=== PATIENT | male | born 1940 | race Caucasian/White ===

== ENCOUNTER → 2017-06-25 | Outpatient (CLI) | payer OTHER, BC ==
[~2017-06-25] MED LIST: AMLODIPINE BESYL5 MG PO; ANORO ELLIPTA1 EACH IH; CARDIZEM CD240 MG PO; CARTIA XT240 M1 PO; DUONEB 2.5-0.5 M3 ML INH; ENDOCET 5-3251 EACH PO; HYDROCODON-ACE1 EAC7 PO; LIPITOR 20 MG T20 M1 PO; LIPITOR20 MG PO; LISINOPRIL20 MG PO; LOPRESSOR25 PO; METOPROLOL SUCC25 M1 PO; MOM PO; OMEPRAZOLE 20 M20 M1 PO; ZETIA10 MG PO; ZOCOR 20 MG TAB20 M1 PO; ZYRTEC 10 MG TA10 M1 PO; ZYRTEC10 M4 PO
== END ==
LOC: RAD 07:33
DX: J44.9 Chronic obstructive pulmonary disease, unspecified (principal); J90 Pleural effusion, not elsewhere classified; I10 Essential (primary) hypertension; E78.5 Hyperlipidemia, unspecified; I48.91 Unspecified atrial fibrillation

== ENCOUNTER → 2018-06-17 | Outpatient (CLI) | payer OTHER, BC | LOC: RAD 08:18 | DX: J44.9 Chronic obstructive pulmonary disease, unspecified (principal) ==

== ENCOUNTER 2018-09-17 16:26 | Emergency (ER) | payer OTHER, BC ==
[~2018-09-17] VITALS: Ht 182.9 cm; Wt 89.8 kg
[2018-09-17 17:47] LABS: ABSOLUTE NEUTROPHILS 4.2 thou/uL (1.4-8.2); BASOPHILS 0.7 % (0.0-2.0); EOSINOPHILS 1.9 % (0.0-3.0); HEMATOCRIT 49.4 % (42.0-52.0); HEMOGLOBIN 17.4 gm/dL (14.0-18.0); LYMPHOCYTES 33.8 % (24.0-44.0); MCH 32.7 pg (26.0-34.0); MCHC 35.2 g/dL (28.0-37.0); MCV 92.8 fL (80.0-100.0); MONOCYTES 10.5 % (1.0-8.0); PLATELET COUNT 208 thou/uL (150-400); POLYS 53.1 % (36.0-66.0); RBC 5.32 mil/uL (4.50-6.00); RDW 13.6 % (10.5-14.5)
[2018-09-17 18:03] LABS: ANION GAP 5 mmol/L (7-16); BUN 10 mg/dL (7-18); CALCIUM 8.8 mg/dL (8.5-10.1); CHLORIDE 104 mmol/L (98-107); CO2 31 mmol/L (21-32); CREATININE 1.2 mg/dL (0.7-1.3); GLUCOSE 107 mg/dL (74-106); POTASSIUM 3.8 mmol/L (3.5-5.1); SODIUM 140 mmol/L (136-145)
[2018-09-17 18:06] LABS: PROTIME 10.6 Seconds (9.3-11.4)
[2018-09-17 18:12] LABS: ALBUMIN 3.3 g/dL (3.4-5.0); MAGNESIUM 1.9 mg/dL (1.8-2.4); SGOT 27 U/L (15-37); SGPT 31 U/L (30-65); TOTAL BILIRUBIN 0.4 mg/dL (<0.1-1.0); TOTAL PROTEIN 7.5 g/dL (6.4-8.2); TROPONIN-I <0.06 ng/mL (<0.06)
[2018-09-17] MEDS ORDERED: PREDNISONE 20 M20 MG PO (18:43)
[2018-09-17] MEDS ORDERED: AMOXICILLIN875 MG PO (18:43)
[2018-09-17] MEDS ORDERED: VENTOLIN HFA 1818 GM INH (18:43)
[2018-09-17 19:04] VITALS: BP 143/89
--- NOTE | 2018-09-18 10:58 | EKG ---
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1940 Requested By: Trung Maravilla Order Number: [id number] MD: Gustavo Rosas Measurements Intervals [place] Rate: 63 P: 89 TX: 174 QRS: 82 QRSD: 108 T: 32 QT: 470 QTc: 482 Interpretive Statements Sinus rhythm Consider left atrial enlargement Borderline prolonged QT interval Compared to ECG 11/17/2015 08:56:56 No significant changes Electronically Signed On 09-18-2018 10:57:59 CDT by Gustavo Rosas [email or web address] ��������������������������������������������� <ELECTRONICALLY SIGNED> ���������������������������������������� By: Gustavo Rsoas MD ��������������������������������������������� 09/18/18 1057 1649 1649 Gustavo Rosas MD /ANASTACIA
== END 2018-09-17 19:05 | disposition home or self-care (01) ==
LOC: ER 16:26
PROVIDERS: Emergency Medicine
DX: J44.1 Chronic obstructive pulmonary disease with (acute) exacerbation (principal); J06.9 Acute upper respiratory infection, unspecified; F17.210 Nicotine dependence, cigarettes, uncomplicated; I10 Essential (primary) hypertension; E78.5 Hyperlipidemia, unspecified; I48.91 Unspecified atrial fibrillation; Z87.442 Personal history of urinary calculi; Z90.2 Acquired absence of lung [part of]; Z88.8 Allergy status to other drugs, medicaments and biological substances

== ENCOUNTER 2018-09-20 14:23 | Inpatient (IN) | payer OTHER, BC ==
[~2018-09-20] VITALS: Ht 182.9 cm; Wt 80.3 kg
[~2018-09-20 14:23] MED LIST changes: +AMOXICILLIN875 MG PO; +PREDNISONE 20 M20 MG PO; +VENTOLIN HFA 1818 GM INH
[2018-09-20 17:07] LABS: BE(vivo) -1.6 mmol/L (-2 to +3); HCO3 20.9 mmol/L (22.0-26.0); PCO2 30.6 mmHg (35.0-45.0); pH 7.452 (7.360-7.450); sO2 94.4 % (92.0-98.0)
[2018-09-20 17:35] LABS: BASOPHILS 0.3 % (0.0-2.0); HEMATOCRIT 49.7 % (42.0-52.0); HEMOGLOBIN 17.2 gm/dL (14.0-18.0); MCH 31.9 pg (26.0-34.0); MCHC 34.6 g/dL (28.0-37.0); MCV 92.3 fL (80.0-100.0); MONOCYTES 2.3 % (1.0-8.0); PLATELET COUNT 264 thou/uL (150-400); POLYS 84.4 % (36.0-66.0); RBC 5.38 mil/uL (4.50-6.00); RDW 13.9 % (10.5-14.5); WBC 10.7 thou/uL (4.0-11.0)
[2018-09-20 17:42] VITALS: BP 152/85
[2018-09-20 17:49] LABS: ANION GAP 12 mmol/L (7-16); BUN 16 mg/dL (7-18); CALCIUM 9.1 mg/dL (8.5-10.1); CHLORIDE 103 mmol/L (98-107); CO2 25 mmol/L (21-32); CREATININE 1.3 mg/dL (0.7-1.3); GLUCOSE 211 mg/dL (74-106); MAGNESIUM 1.7 mg/dL (1.8-2.4); POTASSIUM 3.1 mmol/L (3.5-5.1); SGOT 23 U/L (15-37); SGPT 40 U/L (30-65); SODIUM 140 mmol/L (136-145); TOTAL BILIRUBIN 0.6 mg/dL (<0.1-1.0); TOTAL PROTEIN 7.7 g/dL (6.4-8.2)
[2018-09-20 17:50] LABS: ALBUMIN 3.7 g/dL (3.4-5.0); TROPONIN-I <0.06 ng/mL (<0.06)
[2018-09-20 19:10] VITALS: BP 147/94
--- NOTE | 2018-09-21 00:05 | EKG ---
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 : 1940 Requested By: Juan Manuel Gates Order Number: [id number] MD: Massimo Hines Measurements Intervals [place] Rate: 59 P: 88 ND: 172 QRS: 79 QRSD: 92 T: 76 QT: 461 QTc: 457 Interpretive Statements Sinus rhythm left atrial enlargement Left ventricular hypertrophy baseline wander non specific st/t wave changes Compared to ECG 09/17/2018 16:49:17 no significant changes Electronically Signed On 09-21-2018 0:05:05 CDT by Massimo Hines [email or web address] ��������������������������������������������� <ELECTRONICALLY SIGNED> ���������������������������������������� By: Massimo Hines MD ��������������������������������������������� 09/21/18 0005 170 99 Massimo Hines MD /EPI
--- NOTE | 2018-09-21 02:21 | NUR ---
PATIENT AOX4 MAKES NEEDS KNOWN. NO SHORTNESS OF AIR OR DISTRESS NOTED THIS SHIFT.PATIENT DENIED PAIN OR DISCOMFORT. SCD ON. PATIENT IN BED ASLEEP AT THIS TIME BREATHING REGULAR AND UNLABOURED.
[2018-09-21 02:42] VITALS: BP 152/85
[2018-09-21 07:40] LABS: URINE BILIRUBIN NEGATIVE (Negative); URINE BLOOD TRACE (Negative); URINE CLARITY CLEAR; URINE COLOR YELLOW; URINE GLUCOSE-RANDOM* NEGATIVE (Negative); URINE KETONES NEGATIVE (Negative); URINE LEUKOCYTES-REFLEX TRACE (Negative); URINE NITRITE-REFLEX NEGATIVE (Negative); URINE PROTEIN (DIPSTICK) NEGATIVE (Negative); URINE UROBILINOGEN 0.2 E.U./dl (0.2-1.0)
[2018-09-21 08:17] VITALS: BP 141/81
--- NOTE | 2018-09-21 14:48 | NUR ---
PT ADMITTED RELATED TO SHORTNESS OF AIR. CM REVIEWED CHART AND SPOKE WITH CARE TEAM. CM MET WITH PT AT BEDSIDE THIS DAY. PT IS A&O X4. CM ROLE INTRODUCED. PT INDICATED HE LIVES IN A HOUSE WITH HIS WITH 2 STEPS TO ENTER AND 15 STEPS INSIDE. 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 PT INDICATED HE HAD DME OR HH HX. PT INDICATED HE WAS INTERESTED IN O2 FOR HOME USE UPON DC. EXERCIS OX WAS COMPLETED AND QUALIFIED. CM TO FOLLOW INDICATED WITH DC PLANNING.
[2018-09-21 15:19] VITALS: BP 135/86
--- NOTE | 2018-09-21 18:21 | NUR ---
PT STABLE THROUGHOUT SHIFT. PT HOPING TO DISCHARGE TOMORROW. WORKED WITH PT AND OT WHICH HE TOLERATED WELL. PT RESTING, FAMILY AT BEDSIDE.
[2018-09-21 19:12] VITALS: BP 129/75
[2018-09-21 20:03] VITALS: BP 104/53
[2018-09-22 03:29] VITALS: BP 126/80
--- NOTE | 2018-09-22 05:30 | NUR ---
Assumed care at 1845. Pt resting in bed. Denies chest pain. No episode of hypoxia. Still on 3.5L NC. Running NSR on Tele. Scheduled discharge today. No identified needs at the moment. Will continue to monitor.
[2018-09-22 06:40] LABS: HEMATOCRIT 48.5 % (42.0-52.0); HEMOGLOBIN 16.8 gm/dL (14.0-18.0); MCH 32.2 pg (26.0-34.0); MCHC 34.7 g/dL (28.0-37.0); RBC 5.22 mil/uL (4.50-6.00); RDW 13.8 % (10.5-14.5); WBC 8.9 thou/uL (4.0-11.0)
[2018-09-22 08:18] VITALS: BP 139/88
[2018-09-22] MEDS ORDERED: PREDNISONE 10 M10 MG PO (09:36)
[2018-09-22] MEDS ORDERED: OXYGEN MISCELL (09:36)
[2018-09-22] MEDS ORDERED: NEBULIZER MISCELL (09:36)
[2018-09-22] MEDS ORDERED: OSELB75 PO (09:36)
[2018-09-22] MEDS ORDERED: AZITHROMYCIN 2250 MG PO (09:36)
[2018-09-22 10:05] VITALS: BP 107/60
[2018-09-22 10:23] VITALS: BP 107/60
--- NOTE | 2018-09-22 12:07 | NUR ---
CARE TEAM INDICATED THAT PT IS MEDICALLY STABLE TO DISCHARGE HOME THIS DAY. PT QUALIFIED FOR HOME O2 AT 2L AT REST AND 6L WTIH ACTIVITY. CM ORDERED O2 THROUGH [employer] AND THEY DELIVERED TWO PORTABLE TANKS FOR PT TO DISHDARGE HOME WITH. AWAITING TO SEE IS RT WANTS PT TO HAVE NEBULIZER FOR HOME USE IF SO CM TO ORDER THROUGH [facility]. CM TO FOLLOW INDICATED WITH DC PLANNING.
[2018-09-22 14:19] VITALS: BP 124/69
--- NOTE | 2018-09-22 14:55 | NUR ---
PT GIVEN RX'S, DC INSTRUCTIONS. PT STABLE THROUGHOUT SHIFT. PT DISCHARGED HOMW. PT LEFT UNIT VIA WHEELCHAIR TO PRIVATE VEHICLE WITH O2.
[2018-09-24 19:07] LABS: ADENOVIRUS Negative (Negative); INFLUENZA A Negative (Negative); INFLUENZA B Negative (Negative); METAPNEUMOVIRUS Negative (Negative); PARAINFLUENZA 1 Negative (Negative); PARAINFLUENZA 2 Negative (Negative); PARAINFLUENZA 3 Negative (Negative); RHINOVIRUS Negative (Negative); RSV A Negative (Negative); RSV B Negative (Negative)
== END 2018-09-22 15:00 | disposition home or self-care (01) | DRG 189 ==
LOC: 4W 14:23 → ENTRNSPT 09-22 14:46 → EDTRNSPTSTS 09-22 14:49 → 4W 09-22 15:00
PROVIDERS: Hospitalist; Pediatrics; ADMIT Internal Medicine
DX: J96.01 Acute respiratory failure with hypoxia (principal); J44.1 Chronic obstructive pulmonary disease with (acute) exacerbation; I10 Essential (primary) hypertension; I48.0 Paroxysmal atrial fibrillation; K21.9 Gastro-esophageal reflux disease without esophagitis; E78.5 Hyperlipidemia, unspecified; F17.210 Nicotine dependence, cigarettes, uncomplicated; Z87.442 Personal history of urinary calculi; Z90.2 Acquired absence of lung [part of]; Z79.899 Other long term (current) drug therapy; Z88.8 Allergy status to other drugs, medicaments and biological substances
CPT/HCPCS: 10045; 10047

== ENCOUNTER → 2020-04-17 | Outpatient (CLI) | payer OTHER, BC ==
[~2020-04-17] MED LIST changes: +AZITHROMYCIN 2250 MG PO; +NEBULIZER MISCELL; +OSELB75 PO; +OXYGEN MISCELL; +PREDNISONE 10 M10 MG PO
== END ==
LOC: RAD 07:30
PROVIDERS: ATTEND Pediatrics
DX: J44.9 Chronic obstructive pulmonary disease, unspecified (principal); R91.1 Solitary pulmonary nodule

== ENCOUNTER → 2020-11-29 | Outpatient (CLI) | payer OTHER, BC | LOC: RAD 09:58 | PROVIDERS: ATTEND Pediatrics | DX: R91.8 Other nonspecific abnormal finding of lung field (principal); R06.02 Shortness of breath; R06.00 Dyspnea, unspecified ==

== ENCOUNTER → 2020-12-03 | Outpatient (CLI) | payer OTHER, BC ==
[~2020-12-03] MED LIST changes: +MACROBID 100 M100 M1 PO
== END ==
LOC: CAT 09:28
PROVIDERS: ATTEND Pediatrics
DX: R91.8 Other nonspecific abnormal finding of lung field (principal)

== ENCOUNTER 2020-12-11 11:20 | Emergency (ER) | payer OTHER, BC ==
[~2020-12-11] VITALS: Ht 182.9 cm; Wt 79.4 kg
[~2020-12-11 11:20] MED LIST changes: -MACROBID 100 M100 M1 PO
[2020-12-11 12:11] LABS: ABSOLUTE NEUTROPHILS 7.1 thou/uL (1.4-8.2); BASOPHILS 0.7 % (0.0-2.0); EOSINOPHILS 0.5 % (0.0-3.0); HEMATOCRIT 47.1 % (42.0-52.0); HEMOGLOBIN 15.9 gm/dL (14.0-18.0); LYMPHOCYTES 20.2 % (24.0-44.0); MCH 31.1 pg (26.0-34.0); MCHC 33.7 g/dL (28.0-37.0); MCV 92.4 fL (80.0-100.0); MONOCYTES 8.9 % (1.0-8.0); PLATELET COUNT 322 thou/uL (150-400); POLYS 69.7 % (36.0-66.0); WBC 10.2 thou/uL (4.0-11.0)
[2020-12-11 12:19] LABS: CALCIUM 9.3 mg/dL (8.5-10.1); CREATININE 1.2 mg/dL (0.7-1.3); POTASSIUM 3.1 mmol/L (3.5-5.1)
[2020-12-11 12:25] LABS: ALBUMIN 3.1 g/dL (3.4-5.0); DIRECT BILIRUBIN 0.2 mg/dL (<0.1-0.2); TOTAL BILIRUBIN 0.8 mg/dL (0.2-1.0); TOTAL PROTEIN 7.6 g/dL (6.4-8.2)
[2020-12-11 12:52] LABS: URINE BILIRUBIN NEGATIVE (Negative); URINE BLOOD TRACE (Negative); URINE CLARITY CLEAR; URINE COLOR YELLOW; URINE GLUCOSE-RANDOM* NEGATIVE (Negative); URINE KETONES NEGATIVE (Negative); URINE LEUKOCYTES-REFLEX 1+ (Negative); URINE NITRITE-REFLEX NEGATIVE (Negative); URINE PROTEIN (DIPSTICK) NEGATIVE (Negative); URINE UROBILINOGEN 0.2 E.U./dl (0.2-1.0)
[2020-12-11 13:08] LABS: CASTS None Seen /LPF (None Seen); SQUAMOUS 0-3 Few /LPF (0-3)
[2020-12-11 13:09] LABS: BACTERIA-REFLEX None Seen /HPF (None Seen); CRYSTALS None Seen /LPF (None Seen); URINE RBC 1-2 Rare /HPF (NONE SEEN); URINE WBC-REFLEX 0-5 Rare /HPF (0-5)
[2020-12-11] MEDS ORDERED: MACROBID 100 M100 M1 PO (13:54)
[2020-12-11 14:34] VITALS: BP 122/80
== END 2020-12-11 14:35 | disposition home or self-care (01) ==
LOC: ER 11:20
PROVIDERS: Nurse Practitioner
DX: R04.2 Hemoptysis (principal); N39.0 Urinary tract infection, site not specified; I10 Essential (primary) hypertension; E78.5 Hyperlipidemia, unspecified; I48.91 Unspecified atrial fibrillation; J44.9 Chronic obstructive pulmonary disease, unspecified; F17.210 Nicotine dependence, cigarettes, uncomplicated; Z87.442 Personal history of urinary calculi; Z98.890 Other specified postprocedural states; Z79.899 Other long term (current) drug therapy; Z88.6 Allergy status to analgesic agent; Z88.0 Allergy status to penicillin; Z99.81 Dependence on supplemental oxygen

== ENCOUNTER → 2020-12-18 | Outpatient (CLI) | payer OTHER, BC ==
[~2020-12-18] MED LIST changes: +FLEXERIL PO; +MACROBID 100 M100 M1 PO
== END ==
LOC: PET 09:01
PROVIDERS: ATTEND Pediatrics
DX: J92.9 Pleural plaque without asbestos (principal); R91.8 Other nonspecific abnormal finding of lung field

== ENCOUNTER → 2020-12-24 | Outpatient (CLI) | payer OTHER, BC ==
[~2020-12-24] VITALS: Ht 182.9 cm; Wt 77.0 kg
[~2020-12-24] MED LIST changes: +NORCO5 PO
[2020-12-24 13:00] VITALS: BP 141/89
[2020-12-24 14:25] VITALS: BP 132/84
== END | disposition home or self-care (01) ==
LOC: EDSTATUS 10:43 → PUL 10:45 → CAT 12:01 → ULTRA 12:01 → OR 12:02 → CAT 15:11
PROVIDERS: ATTEND Pediatrics
DX: C49.6 Malignant neoplasm of connective and soft tissue of trunk, unspecified (principal); I10 Essential (primary) hypertension; E78.5 Hyperlipidemia, unspecified; J43.9 Emphysema, unspecified; F17.210 Nicotine dependence, cigarettes, uncomplicated; I48.91 Unspecified atrial fibrillation; Z98.890 Other specified postprocedural states; Z79.899 Other long term (current) drug therapy; Z79.01 Long term (current) use of anticoagulants; Z87.442 Personal history of urinary calculi

== ENCOUNTER 2020-12-26 04:24 | Emergency (ER) | payer OTHER, BC ==
[~2020-12-26] VITALS: Ht 182.9 cm; Wt 78.0 kg
[~2020-12-26 04:24] MED LIST changes: -NORCO5 PO
[2020-12-26 04:47] LABS: ABSOLUTE NEUTROPHILS 7.3 thou/uL (1.4-8.2); BASOPHILS 0.7 % (0.0-2.0); EOSINOPHILS 2.4 % (0.0-3.0); HEMATOCRIT 43.8 % (42.0-52.0); LYMPHOCYTES 18.4 % (24.0-44.0); MCH 31.6 pg (26.0-34.0); MCHC 34.2 g/dL (28.0-37.0); MCV 92.4 fL (80.0-100.0); MONOCYTES 10.7 % (1.0-8.0); PLATELET COUNT 299 thou/uL (150-400); POLYS 67.8 % (36.0-66.0); RBC 4.74 mil/uL (4.50-6.00); RDW 12.9 % (10.5-14.5); WBC 10.8 thou/uL (4.0-11.0)
[2020-12-26 04:55] LABS: ANION GAP 9 mmol/L (7-16); BUN 11 mg/dL (7-18); CALCIUM 9.1 mg/dL (8.5-10.1); CHLORIDE 102 mmol/L (98-107); CO2 29 mmol/L (21-32); CREATININE 1.2 mg/dL (0.7-1.3); GLUCOSE 122 mg/dL (74-106); POTASSIUM 3.6 mmol/L (3.5-5.1); SODIUM 140 mmol/L (136-145)
[2020-12-26 05:05] LABS: ALBUMIN 2.9 g/dL (3.4-5.0); SGOT 52 U/L (15-37); SGPT 66 U/L (16-63); TOTAL BILIRUBIN 0.6 mg/dL (0.2-1.0); TOTAL PROTEIN 7.4 g/dL (6.4-8.2); TROPONIN-I <0.06 ng/mL (<0.06)
[2020-12-26] MEDS ORDERED: NORCO5 PO (07:17)
[2020-12-26 08:47] VITALS: BP 141/91
--- NOTE | 2020-12-26 14:43 | EKG ---
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: : 1940 Requested By: Severo Arias Order Number: [id number] MD: Arpan Montes Measurements Intervals [place] Rate: 96 P: 81 NE: 201 QRS: 78 QRSD: 88 T: 59 QT: 370 QTc: 468 Interpretive Statements Sinus rhythm LAE, consider biatrial enlargement Minimal ST depression, inferior leads Compared to ECG 09/20/2018 17:00:53 ST (T wave) deviation now present Left ventricular hypertrophy no longer present Electronically Signed On 12-26-2020 14:43:00 CDT by Arpan Montes [email or web address] <ELECTRONICALLY SIGNED> By: Arpan Montes MD, [facility] 12/26/20 1443 0 0 Arpan Montes MD, FACC /EPI
== END 2020-12-26 08:47 | disposition home or self-care (01) ==
LOC: ER 04:24
PROVIDERS: Emergency Medicine
DX: C34.91 Malignant neoplasm of unspecified part of right bronchus or lung (principal); I31.3 Pericardial effusion (noninflammatory); I10 Essential (primary) hypertension; J44.9 Chronic obstructive pulmonary disease, unspecified; F17.210 Nicotine dependence, cigarettes, uncomplicated; Z88.8 Allergy status to other drugs, medicaments and biological substances; Z88.0 Allergy status to penicillin; Z90.2 Acquired absence of lung [part of]

== ENCOUNTER → 2020-12-28 | Outpatient (CLI) | payer OTHER, BC ==
[~2020-12-28] MED LIST changes: +NORCO5 PO
== END ==
LOC: MRI 10:04
PROVIDERS: ATTEND Internal Medicine Hematology & Oncology
DX: I67.82 Cerebral ischemia (principal); G31.89 Other specified degenerative diseases of nervous system; C34.90 Malignant neoplasm of unspecified part of unspecified bronchus or lung; R91.8 Other nonspecific abnormal finding of lung field

== ENCOUNTER 2021-03-21 12:11 | Inpatient (IN) | payer OTHER, BC ==
[~2021-03-21] VITALS: Ht 182.9 cm; Wt 71.3 kg
--- NOTE | ~2021-03-21 | EKG ---
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1940 Requested By: Bi Irvin Order Number: [id number] MD: Measurements Intervals [place] Rate: 124 P: 90 PA: 175 QRS: 87 QRSD: 85 T: 64 QT: 303 QTc: 436 Interpretive Statements Sinus tachycardia Atrial premature complexes Consider right atrial enlargement Borderline right axis deviation Minimal ST depression, inferior leads Compared to ECG 12/26/2020 04:21:17 Atrial premature complex(es) now present Sinus rhythm no longer present ST (T wave) deviation still present [email or web address] By: 1232 1232 Epiphany Epiphany, /EPI
--- NOTE | ~2021-03-21 | HC ---
[facility] [place] [address] [place] [address] CONSULTATION Name: SUZE NOBLE Room #: 207-P [facility] IN M.R.#: [id number] Admission: 03/21/21 Attend Phys: Ephraim Castorena MD Discharge: Date of : 44 Report #: [id number] THIS REPORT FOR: cc: Thang Desai MD, Rene P. MD McKittrick, Richard James MD ~ cc: Eric Nick MD, Thang Desai MD, Jonny Graham MD, Ga Ugalde MD DATE OF SERVICE: 03/22/2021 REASON FOR CONSULTATION: History of small cell lung cancer, arterial clot and shortness of air. CONSULT REQUESTED BY: Dr. Ephraim Castorena. HISTORY OF PRESENT ILLNESS: The patient is a very pleasant 80-year-old male diagnosed this past summer with extensive stage small cell lung cancer. He has received 4 cycles of chemotherapy. Last was given about 2 weeks ago. He was responding very well to 2 cycles. His history is also significant for recent admission at [facility] from about 03/14 through 03/19 for leg pain and discoloration of his right leg with finding of arterial clot in both mural thrombus in the infrarenal aorta as well as in the bilateral superior femoral arteries. They elected not to use thrombolysis surgery, but began him on anticoagulants, for which he is responding with decreased pain and improved coloration. The patient is now admitted with about a 1 or 2 days of increasing shortness of air. His cough is not worse than usual. He does not have any fever. He feels like his feet are doing better. He does have a frequent morning cough with a little bit of flecks of blood, may be about the size of a or two. Before this one, he has not really had any large amounts of blood. He did earlier this morning cough up some dark red blood that looks like it is more with some phlegm, maybe about a tablespoon or so in amount. He denies any headache, any nausea, vomiting. Does have fatigue, feels like his breathing is slightly better. No abdominal pain, no new ulcerations. PAST MEDICAL HISTORY: Past history is notable for a history of extensive stage small cell lung cancer that appears to be responding. Note that we are getting outside scans to compare to see if he respond. If he does respond, when he is improving, we may continue the Tecentriq. Past history is also notable for arterial clot, unclear etiology, involving the infrarenal aorta as well as the bilateral superficial femoral arteries. He also has a history of COPD, hypertension, elevated PSA, gout. Also, history of bladder cancer, history of atypical mycobacterial infection. 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 Nondrinker, quit smoking in October of 2020. Prior to that, a pack a day for about 60 years. FAMILY HISTORY: Notable for mother with diabetes and heart disease and hypertension and migraines. MEDICATIONS: At this time in the hospital currently include vancomycin 750 mg q. 12, methylprednisolone 40 IV b.i.d., heparin protocol, ipratropium/albuterol respiratory therapy q.i.d., cefepime 1 gram q. 8, Tylenol p.r.n. PHYSICAL EXAMINATION: GENERAL: The patient appears his stated age. VITAL SIGNS: His current height is 6 feet, which is 182.9 cm. Weight is 157.2 pounds or 71.3 kilograms. Recent blood pressure is 113/71, O2 sat 97%, respirations 19, temperature 97.5, pulse 101. MOOD: Alert, pleasant, conversant. NEUROLOGIC: Moving extremities. Face symmetrical. LUNGS: Have some slight diminished breath sounds, left upper lobe and perhaps a very few slight crackles, right base, but no obvious rhonchi or wheezes at this time. HEART: Regular rate. LYMPHATIC: No enlarged lymph nodes in the supraclavicular, cervical, axillary, or inguinal region. ABDOMEN: Fairly flat. No hepatosplenomegaly, nontender. EXTREMITIES: Without clubbing, cyanosis. Note that he does have a boot/wrap on his right leg that he says is for warmth to help with circulation. It is not for broken bone or anything like that, he says. Skin appears to be intact. LABORATORY DATA: This admission notable for creatinine 1.0. Electrolytes normal. Liver functions normal including total bilirubin 0.6, alkaline phosphatase slightly elevated at 190. Baseline coags were pro-time 11, INR 1.01, APTT 29.9. White count 14.7, hemoglobin 11.7, then 10.1, on two different measures and stable, platelets 242. COVID negative. Urine mostly negative except there is 1+ blood. IMAGING: Done here so far includes CTA chest, compared to 12/26/2020, note this is a CTA, no pulmonary embolus. Mild interstitial ground glass throughout the right lower lobe significantly increased, decrease in right upper lobe mass and liver metastasis and right hilar adenopathy suggestive of responsive disease. ASSESSMENT AND PLAN: 1. 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 We will hold off on continuing chemotherapy and especially Tecentriq until the patient off steroids and reevaluated. This is encouraging. [facility] [address] [place] [address] CONSULTATION Name: SUZE NOBLE Room #: 207-P [facility] IN ..#: [id number] Admission: 03/21/21 Attend Phys: Ephraim Castorena MD Discharge: Date of : 44 Report #: [id number] 2. 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 Clinically, appears to be improving. We will need to balanced use of heparin to continue clot dissolution versus hemoptysis. Consider lower heparin in the range of . 3. Pneumonitis. Agree with broad-spectrum antibiotics and cultures. 4. Respiratory failure, aerosol, oxygen and steroids. 5. Chronic obstructive pulmonary disease, steroids and oxygen. 6. History of hypertension, per others. 7. History of gout, per others. 8. History of atypical bacterial infection in the past, per others. 9. History of bladder cancer, per others. We will follow with you. By: 0601 0736 Luis Arshad MD /nt
[2021-03-21 12:21] VITALS: BP 117/80
[2021-03-21] MEDS ORDERED: VAZALORE81 MG PO (12:48)
[2021-03-21] MEDS ORDERED: ENOXAPARIN60 MG/0.1 SUBQ (12:49)
[2021-03-21] MEDS ORDERED: PROSCAR 5MG TABL5 M1 PO (12:50)
[2021-03-21 13:15] LABS: CALCIUM 9.3 mg/dL (8.5-10.1); POTASSIUM 4.2 mmol/L (3.5-5.1)
[2021-03-21 13:33] LABS: APTT 29.9 Seconds (24.5-32.8); D-DIMER 1.21 ug/mLFEU (0.19-0.50); INR 1.01
[2021-03-21 13:37] LABS: ABSOLUTE NEUTROPHILS 11.3 thou/uL (1.4-8.2); BASOPHILS 0.6 % (0.0-2.0); EOSINOPHILS 0.2 % (0.0-3.0); HEMOGLOBIN 11.7 gm/dL (14.0-18.0); LYMPHOCYTES 12.8 % (24.0-44.0); MCH 31.8 pg (26.0-34.0); MCHC 32.4 g/dL (28.0-37.0); MCV 98.1 fL (80.0-100.0); MONOCYTES 9.8 % (1.0-8.0); PLATELET COUNT 242 thou/uL (150-400); POLYS 76.6 % (36.0-66.0); RBC 3.67 mil/uL (4.50-6.00); RDW 18.8 % (10.5-14.5); WBC 14.7 thou/uL (4.0-11.0)
--- NOTE | 2021-03-21 13:37 | EKG ---
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1940 Requested By: Bi Irvin Order Number: [id number] MD: Arpan Montes Measurements Intervals [place] Rate: 124 P: 90 SC: 175 QRS: 87 QRSD: 85 T: 64 QT: 303 QTc: 436 Interpretive Statements Sinus tachycardia Atrial premature complexes Consider right atrial enlargement Borderline right axis deviation Compared to ECG 12/26/2020 04:21:17 Atrial premature complex(es) now present Sinus rhythm no longer present ST (T wave) deviation still present Electronically Signed On 03-21-2021 13:37:00 CDT by Arpan Montes [email or web address] <ELECTRONICALLY SIGNED> By: Arpan Montes MD, [facility] 03/21/21 1337 1232 1232 Arpan Montes MD, FAC /EPI
[2021-03-21 13:38] LABS: ALBUMIN 3.2 g/dL (3.4-5.0); TOTAL BILIRUBIN 0.6 mg/dL (0.2-1.0); TOTAL PROTEIN 6.6 g/dL (6.4-8.2)
[2021-03-21 14:56] LABS: ANISOCYTOSIS 2+; TEARDROPS 1+
[2021-03-21 17:13] LABS: URINE BILIRUBIN NEGATIVE (Negative); URINE BLOOD 1+ (Negative); URINE CLARITY CLEAR; URINE COLOR YELLOW; URINE GLUCOSE-RANDOM* NEGATIVE (Negative); URINE KETONES NEGATIVE (Negative); URINE LEUKOCYTES-REFLEX NEGATIVE (Negative); URINE NITRITE-REFLEX NEGATIVE (Negative); URINE PROTEIN (DIPSTICK) NEGATIVE (Negative); URINE SPECIFIC GRAVITY <= 1.005 (1.005-1.035); URINE UROBILINOGEN 0.2 E.U./dl (0.2-1.0)
[2021-03-21 17:23] VITALS: BP 117/80
[2021-03-21 17:40] VITALS: BP 156/77
[2021-03-21 17:47] LABS: BACTERIA-REFLEX 1-9 Few /HPF (None Seen); MUCUS 0-3 Light strn/LPF (None Seen); SQUAMOUS 0-3 Few /LPF (0-3); URINE RBC 3-10 Few /HPF (NONE SEEN); URINE WBC-REFLEX 0-5 Rare /HPF (0-5)
[2021-03-21 18:00] VITALS: BP 141/84
--- NOTE | 2021-03-21 18:42 | NUR ---
PT ARRIVED VIA GURNEY FROM ER FOR ACUTE HYPOXIC RESPIRATORY FAILURE. PT IS CURRENTLY ON 5L NC AND WEARS 4L NC AT HOME. LEFT UPPER LOBE SOUNDS ABSENT DUE TO REMOVAL FOR CANCER. DIMINISHED LEFT LOWER LOBE. CLEAR RIGHT LUNG SOUNDS. DRENDA AT BEDSIDE. CALL LIGHT WITHIN REACH.
[2021-03-21 18:59] LABS: HEMATOCRIT 30.3 % (42.0-52.0); HEMOGLOBIN 10.1 gm/dL (14.0-18.0)
[2021-03-22 03:04] LABS: HEMATOCRIT 30.7 % (42.0-52.0); HEMOGLOBIN 10.1 gm/dL (14.0-18.0)
[2021-03-22 05:12] VITALS: BP 113/71
--- NOTE | 2021-03-22 05:28 | NUR ---
At about 0520 this am, pt coughed up dark red sputum. Dr Nick paged per order.
--- NOTE | 2021-03-22 06:18 | NUR ---
Assumed pt's care this pm shift. ALert and oriented x4. VSS on 5L NC. Pt voiced not sleeping much this shift. Meds given per emar. Pt started on heparin drip with no initial bolus. Heparin drip titrated per protocol. See emar for heparin administration. Pt had one episode of hemoptysis this am. Dr Nick paged per order, awaiting call back. Pt voids via urinal. Requested to have bed alarm off so he can sit on side of bed and use urinal. Pt makes needs known and calls appropriately. Nursing to continue to monitor.
[2021-03-22 09:58] VITALS: BP 129/78
--- NOTE | 2021-03-22 11:41 | NUR ---
TOOK OVER CARE FOR PATIENT AT 0700. PATIENT RESTING COMFORTABLY IN BED AT THIS TIME. PATIENT WEARING 5 L OXYGEN VIA NASAL CANNULA AT THIS TIME. PATIENT BECOMES SHORT OF AIR WITH EXERTION. PATIENT DENIES ANY PAIN AT THIS TIME. PATIENT SPOUSE PRESENT. PATIENT AXOX4. FALL PRECAUTIONS ARE IN PLACE AND CALL LIGHT WITHIN REACH. DENIES ANY NEEDS AT THIS TIME.
[2021-03-22 12:00] VITALS: BP 128/72
[2021-03-22 16:00] VITALS: BP 145/78
[2021-03-22 17:04] VITALS: BP 145/78
--- NOTE | 2021-03-22 17:06 | NUR ---
Case opened to follow for dc planning support. Cm role introduced to pt and at bedside today. Pt is a&ox4 and indicates he has been using a rwalker, [facility], hospital bed and o2 at 3-4 liters at home. He lives with his in [place], [place] and has been going thru chemo since December for lung ca. He is s/p lobectomy and recent DVT. His onc is and his pulm Dr. Nick. His and dtrs are very involved and supportive. He believes his PET scan is being cancelled and CT's compared per onc with good results from his chemo. He had done an info visit with [facility] should his prognosis worsen. He is anticipating dc in 1-2 days pending his progress. He is on heprin gtt and iv steriods/atb. PT to eval tomorrow and he would like them to give him an home exercise program to follow. They do not wish to pursue hh or outpt therapy due in an effort to minimize his exposure. Will follow along. No cm interventions indicated at this time. Likely dc to home with outpt f/u.
[2021-03-22 19:38] VITALS: BP 125/81
[2021-03-23 04:23] VITALS: BP 116/71
[2021-03-23 05:17] LABS: HEMATOCRIT 28.6 % (42.0-52.0); HEMOGLOBIN 9.4 gm/dL (14.0-18.0)
--- NOTE | 2021-03-23 07:58 | NUR ---
Assumed pt's care overnight shift. Alert and oriented x4. Able to sit on side of bed to void vial urinal. Able to make needs known. Pt did get melatonin at HS. Slept well this shift. Heparin titrated and bolused per protocol. Vancomycin dose adjusted by pharm after vanc trough resulted. already at bedside this am. Possible dc to home this am. Nursing to continue to monitor.
[2021-03-23 08:00] VITALS: BP 142/85
[2021-03-23] MEDS ORDERED: IPRAT-ALBUT 0.5-3 ML INH (10:05)
[2021-03-23] MEDS ORDERED: PREDNISONE 20 M20 MG PO (10:06)
[2021-03-23] MEDS ORDERED: CEFDINIR300 MG PO (10:06)
[2021-03-23 12:00] VITALS: BP 129/73
[2021-03-23 12:18] VITALS: BP 145/78
--- NOTE | 2021-03-23 12:44 | NUR ---
Assumed care of pt this AM. Pt is A&O x4, on 4L NC which is baseline. Currently has heparin gtt running, APTT from this AM in therapeutic range, no change made. Pt working w/ PT/OT today. Plans for discharge today pending approval by pul & Dr. Castorena. Pt got agitated when I asked about whether or not HH would be needed & if I needed to contact CM before they left. Pt stated that he wanted to "sign whatever papers I need to be able to leave without anything". Will wait for Dr. Castorena approval to discharge.
--- NOTE | 2021-03-23 13:35 | NUR ---
PT DISCHARGING THIS PM AND DECIDED NO OT NEEDS AT THIS TIME. SEE OT VARIANCE
[2021-03-23 16:28] VITALS: BP 145/78
== END 2021-03-23 18:09 | disposition home or self-care (01) | DRG 871 ==
LOC: ER 12:11 → EROBS 15:55 → 2N 15:55
PROVIDERS: Emergency Medicine; ADMIT Hospitalist; ATTEND Hospitalist
DX: A41.9 Sepsis, unspecified organism (principal); J18.9 Pneumonia, unspecified organism; J96.21 Acute and chronic respiratory failure with hypoxia; D62 Acute posthemorrhagic anemia; C34.90 Malignant neoplasm of unspecified part of unspecified bronchus or lung; J44.0 Chronic obstructive pulmonary disease with (acute) lower respiratory infection; I74.10 Embolism and thrombosis of unspecified parts of aorta; C78.7 Secondary malignant neoplasm of liver and intrahepatic bile duct; E46 Unspecified protein-calorie malnutrition; I10 Essential (primary) hypertension; M10.9 Gout, unspecified; E78.5 Hyperlipidemia, unspecified; R53.81 Other malaise; D72.829 Elevated white blood cell count, unspecified; Y95 Nosocomial condition; I48.91 Unspecified atrial fibrillation; Z20.822 Contact with and (suspected) exposure to COVID-19; Z86.718 Personal history of other venous thrombosis and embolism; Z90.2 Acquired absence of lung [part of]; Z99.81 Dependence on supplemental oxygen; Z87.442 Personal history of urinary calculi; Z86.11 Personal history of tuberculosis; Z87.891 Personal history of nicotine dependence; Z85.51 Personal history of malignant neoplasm of bladder; Z79.899 Other long term (current) drug therapy; Z88.5 Allergy status to narcotic agent; Z88.0 Allergy status to penicillin; Z83.3 Family history of diabetes mellitus; Z82.49 Family history of ischemic heart disease and other diseases of the circulatory system; Z82.0 Family history of epilepsy and other diseases of the nervous system; Z68.21 Body mass index [BMI] 21.0-21.9, adult; Z86.19 Personal history of other infectious and parasitic diseases
CPT/HCPCS: 10081

== ENCOUNTER 2021-06-08 10:07 | Inpatient (IN) | payer OTHER, BC ==
[~2021-06-08] VITALS: Ht 182.9 cm; Wt 76.7 kg
[~2021-06-08 10:07] MED LIST changes: +CEFDINIR300 MG PO; +ENOXAPARIN80 MG/0.8 SUBQ; +IPRAT-ALBUT 0.5-3 ML INH; +PROSCAR 5MG TABL5 M1 PO; +VAZALORE81 MG PO
[2021-06-08 10:20] VITALS: BP 131/93
[2021-06-08 12:55] LABS: BASOPHILS 0.9 % (0.0-2.0); EOSINOPHILS 0.5 % (0.0-3.0); HEMATOCRIT 39.1 % (42.0-52.0); HEMOGLOBIN 12.9 gm/dL (14.0-18.0); LYMPHOCYTES 19.8 % (24.0-44.0); MCH 32.6 pg (26.0-34.0); MCV 98.8 fL (80.0-100.0); MONOCYTES 11.7 % (1.0-8.0); PLATELET COUNT 308 thou/uL (150-400); POLYS 67.1 % (36.0-66.0); RBC 3.95 mil/uL (4.50-6.00); RDW 14.9 % (10.5-14.5)
[2021-06-08 13:05] LABS: CALCIUM 9.5 mg/dL (8.5-10.1); CREATININE 1.4 mg/dL (0.7-1.3); POTASSIUM 3.3 mmol/L (3.5-5.1)
[2021-06-08 13:07] LABS: ALBUMIN 3.6 g/dL (3.4-5.0)
[2021-06-08 13:31] LABS: TOTAL BILIRUBIN 0.8 mg/dL (0.2-1.0); TOTAL PROTEIN 7.2 g/dL (6.4-8.2)
[2021-06-08] MEDS ORDERED: TUMS200 MG PO (13:40)
[2021-06-08] MEDS ORDERED: CENTRUM SILVER1 EAC7 PO (13:41)
[2021-06-08] MEDS ORDERED: ENOXAPARIN60 MG/0.6 SUBQ (13:42)
[2021-06-08] MEDS ORDERED: LEVO-T50 MCG PO (13:43)
[2021-06-08] MEDS ORDERED: ONDANSETRON ODT8 MG PO (13:44)
[2021-06-08] MEDS ORDERED: PROTONIX40 M2 PO (13:44)
[2021-06-08] MEDS ORDERED: DESYREL150 MG PO (13:45)
--- NOTE | 2021-06-08 19:05 | NUR ---
REPORT GIVEN TO SMOOTH MORELOS AT THIS TIME
[2021-06-08 21:39] VITALS: BP 114/89
--- NOTE | 2021-06-09 01:49 | NUR ---
PT IS A/O X4 AND IS CURRENTLY ON 5 LITERS O2 PER NC. DIFFICULTY BREATHING WITH AND INCREASED SOB WITH EXERTION. UP WITH SBA. USES URINAL AT THE BEDSIDE WITH ASSISTANCE. ADMISSION IS COMPLETE. PT HAS BEEN EDUCATED ON USE OF CALL LIGHT AND BED CONTROLS. FALL PRECUATIONS IN PLACE, CALL LIGHT IS WITHIN REACH. WILL CONTINUE TO MONITOR.
[2021-06-09 07:57] VITALS: BP 118/75
--- NOTE | 2021-06-09 10:22 | EKG ---
[address] [place] [address] ELECTROCARDIOGRAM REPORT Name: AIDESUZE Paula Room #: 444-P ADM IN M.R.#: [id number] Admission: 06/08/21 Attend Phys: Jessica Murillo Discharge: Date of : 44 Report #: [id number] [facility] ED Test Date: 2021-06-08 Test Time: 12:51:40 Pat Name: SUZE NOBLE Department: Room: 444 Gender: M Hide Tanner: MAME : 1940 Requested By: Bi Irvin Order Number: [id number] MD: Omar Washington Measurements Intervals [place] Rate: 86 P: 85 DC: 163 QRS: 75 QRSD: 83 T: 59 QT: 386 QTc: 462 Interpretive Statements Sinus rhythm No significant abnormality Compared to ECG 03/21/2021 12:32:09 Sinus tachycardia no longer present Atrial premature complex(es) no longer present Electronically Signed On 06-09-2021 10:22:24 CASINO SUPERVISOR by Omar Washington [email or web address] <ELECTRONICALLY SIGNED> By: Omar Washington MD, [facility] 06/09/21 1022 1251 1251 Omar Washington MD, FAC /EPI
--- NOTE | 2021-06-09 14:55 | NUR ---
A/O X 4. 6 L O2 VIA NASAL CANNULA. ONE ASSIST WITH TRANSFERS. LEFT AC IV. PALE/COOL SKIN. 90% PULSE OX. AT BEDSIDE. NO PAIN.
[2021-06-09 15:16] VITALS: BP 111/76
[2021-06-09 20:03] VITALS: BP 120/79
[2021-06-10 05:33] LABS: ABSOLUTE NEUTROPHILS 5.1 thou/uL (1.4-8.2); BASOPHILS 0.2 % (0.0-2.0); HEMATOCRIT 32.3 % (42.0-52.0); MCH 32.8 pg (26.0-34.0); MCHC 33.3 g/dL (28.0-37.0); MCV 98.3 fL (80.0-100.0); MONOCYTES 3.3 % (1.0-8.0); PLATELET COUNT 290 thou/uL (150-400); POLYS 88.5 % (36.0-66.0); RBC 3.28 mil/uL (4.50-6.00); RDW 14.9 % (10.5-14.5); WBC 5.8 thou/uL (4.0-11.0)
[2021-06-10 05:38] LABS: HEMOGLOBIN 10.8 gm/dL (14.0-18.0)
[2021-06-10 06:09] LABS: CALCIUM 8.7 mg/dL (8.5-10.1); CREATININE 1.6 mg/dL (0.7-1.3); PHOSPHORUS 3.6 mg/dL (2.5-4.9); POTASSIUM 3.6 mmol/L (3.5-5.1); TOTAL BILIRUBIN 0.7 mg/dL (0.2-1.0); TOTAL PROTEIN 6.2 g/dL (6.4-8.2)
[2021-06-10 07:35] VITALS: BP 138/91
--- NOTE | 2021-06-10 09:25 | NUR ---
ASSUMED PT CARE THIS AM. PT IS ALERT & ORIENTED X4. PT HAS IV SITE ON LAC SALINE LOCKED. PT USES URINAL. PT IS ON 4L NC 02 THIS AM. PER PT AND PT 3L NC 02 AT HOME/BASELINE. PT INFORMED ME THIS AM THAT WANTS TO GO HOME TOMORROW TO FOLLOW UP [facility] APPOINTMENT. PT HAS LUNG CANCER AND WAS A FORMERT SMOKER PER PT. PT ON THE BED EATING BREAKFAST, BED ON THE LOWEST POSITION, SIDE RAILS UP, CALL LIGHT WITHIN REACH. WILL CONTINUE TO MONITOR PT. FOLLOW POC.
--- NOTE | 2021-06-10 10:26 | NUR ---
Assess due to high nutrition screening risk. Pt admitted with respiratory failure, hx lobectomy. Lung cancer with brain mets. Familiar with pt from recent admission in November. Visit this am, pt very pleasant and talkative. States appetite fair for several months while going through treatment but likes to drink 2 Premiere protein drinks daily which spouse brings in. does not like ensure products. Able to order own meals. Had initial wt loss of 30 lb prior to cancer diagnosis, and now more stable around 170 lb. Low nutrition risk at this time with appropriate nutrition interventions in place.
--- NOTE | 2021-06-10 11:50 | NUR ---
80 y/o male presenting to the ED c/o dyspnea and hypoxia for the past 2 days. He called his normalizer MANAGER QUALITY COMPLIANCE, who advised being evaluated in the ED. The patient states he's normally on 3L per nasals He reports his oxygen saturation has been in 70's upon waking in the morning, with improvement to the mid 80's after completing a breathing treatment. He notes he's become increasingly dyspneic over the past 2 days. He additionally reports 2-3 episodes of hemoptysis and describes each episode as ~1 tsp of dark red blood. He further reports increased fatigue, decreased appetite, constipation, and hard BMs. Hx of brain cancer, lung cancer, bladder cancer, AFib, AVM, COPD, left upper lobectomy, HLD, and HTN. He has undergone seven radiation treatments and is scheduled for three more. He last chemotherapy 1 month ago and his next treatment is scheduled for 06/20/2021. He finished a steroid taper yesterday. He is fully vaccinated against COVID-19. PCP Dr Desai. Complaints of SOA and coughing up blood. Chart review. Cm visited with Adrian at bedside, He is a & o x3, pleasant and able to make his needs know. Would like to dc by tomorrow morning so i do not miss my radiation appointment at . Lives at home with his , she is a retired nurse. Has support from his . Normally independent. His drives him places related to changes in his vision. Declines the need for home health or rehab. Will cont. following if needs arise. Currently on o2 at 4L/nasal cannula, and baseline is 3L. Has home oxygen and breathing tx already set up at home.
[2021-06-10 14:50] VITALS: BP 118/91
[2021-06-10 19:49] VITALS: BP 132/103
--- NOTE | 2021-06-11 02:30 | NUR ---
PT IS A/O X4 AND IS UP WITH ASSISTANCE. HAS FLUCTUATED BETWEEN 8 AND 10 LITERS O2 PER NC RECCOMMENDED BY RT THIS NOC. SCHEDULED BRTX GIVEN BY RT. PT IS PLEASANT AND COOPERATIVE. VOIDS PER URINAL. NO BM THIS SHIFT. FALL PRECAUTIONS IN PLACE, CALL LIGHT IS WITHIN REACH. PT C/O INSOMNIA. PRN SLEEP MEDICATION GIVEN DIRECTED.
[2021-06-11 04:31] VITALS: BP 134/97
[2021-06-11 07:14] VITALS: BP 131/97
--- NOTE | 2021-06-11 07:19 | HC ---
[facility] [place] [address] CONSULTATION Name: SUZE NOBLE Room #: 444-P [facility] IN M.R.#: [id number] Admission: 06/08/21 Attend Phys: Jessica Murillo Discharge: Date of : 44 Report #: [id number] THIS REPORT FOR: cc: Thang Desai MD, Rene P. 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 HISTORY OF PRESENT ILLNESS: The patient is a 80-year-old gentleman, who I have known for several months with a history of extensive stage small cell lung cancer and a history of arterial clots in his leg. More recently, he was admitted for several days of coughing up blood. He was thought possible having infection, but not so much and then may just be from exacerbation of his COPD. He was begun on steroids 40 t.i.d. yesterday and appears to be better. No fevers, no chills. Does have a knot on his calf that is about 3/4 x 1.5 cm, subcutaneous. This hard to tell if it is an ecchymosis or tumor deposit. I think it is his right calf. He had been a little more short of breath, had been on higher flows of oxygen. No nausea. No vomiting. Appetite has been off a little bit. No new arm or leg swelling. MEDICATIONS: At this time in the hospital include pantoprazole 40 daily, metoprolol 25 daily, levothyroxine 50 mcg daily, methylprednisolone 40 t.i.d. IV, Lovenox 80 b.i.d., levofloxacin 1 daily, ipratropium and albuterol respiratory therapy, Tylenol p.r.n., zolpidem 5 mg p.r.n., MiraLax daily, nitroglycerin p.r.n., Zofran p.r.n., furosemide, I think he may have been on twice a day, but I only see once a day here. PHYSICAL EXAMINATION: GENERAL: The patient appears his stated age. VITAL SIGNS: His height is 6 feet or 182.9 cm. Weight is 169 pounds or 76.66 kilograms. Recent blood pressure is 138/91, O2 sat 94%, I think he is on 4 liters, respirations 19, pulse 90, afebrile at 97.7. He have family members present. HEENT: Face looks symmetrical. MOOD: He is pleasant, conversant. NEUROLOGIC: Speech and thought pattern normal. Moving extremities. LUNGS: Have some slight distant sounds, some very soft rhonchi. No wheezes. No accessory muscle use this time. HEART: Regular rate. NECK: No enlarged lymph nodes in the supraclavicular, cervical, axillary region. [facility] [address] [place] [address] CONSULTATION Name: AIDESUZE Paula Room #: 444-P ADM IN M.R.#: [id number] Admission: 06/08/21 Attend Phys: Jessica Murillo Discharge: Date of : 44 Report #: [id number] ABDOMEN: No masses, nontender. EXTREMITIES: Without clubbing, cyanosis. There is a subcutaneous mass with ecchymosis on his right calf, measuring about 3/4 x 1.5 cm. LABORATORY DATA: Here, creatinine is 1.6. Liver functions normal. Glucose was 177. White count 5.8, hemoglobin 10.8 after admission. MCV 98.3, platelets 290. Chest x-ray here on admission that was extensive chronic lung changes noted. No evidence of a new increase in consolidation and pulmonary infiltrates, pneumothorax or significant pleural effusion. ASSESSMENT AND PLAN: 1. 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 The patient has completed 7 of 10 fractions. Family member will call Dr. Rivera and let him know he will not be in today and would like to resume when able to. Also plan is to begin a new chemotherapy called lurbinectedin 5 or 7 days after radiation therapy because of his recent progressive disease. 2. Hemoptysis, appears to be low volume. Dr. Nick is going to consult Interventional Radiology in case they are needed. We are hoping that between the steroids and antibiotics, this will help this turn around as there maybe a bronchitic component. We will follow blood work, also cautiously continue his Lovenox. 3. History of arterial clot, continue on anticoagulant. Difficult balance between recurrence of clot and bleeding difficulties. Continue following ___ hemoglobin down, but may be fluid status increase. 4. Chronic obstructive pulmonary disease, aerosols and oxygen per others. 5. Respiratory failure. Continue his 4 liters of oxygen. 6. History of atypical mycobacterial infection in the past, per others. 7. History of hypertension meds, per others. 8. History of gout, per others. 9. History of elevated PSA, per others. We will follow with you. <ELECTRONICALLY SIGNED> By: Luis Arshad MD 06/11/21 0719 0726 0752 Luis Arshad MD /venessa
--- NOTE | 2021-06-11 10:19 | NUR ---
ASSUMED PT CARE THIS AM. PT IS ON 7L NC O2 THIS AM. NO C/O OF PAIN, NAUSEA AND VOMITING. PT TOLERATED DIET AND MEDICATION WELL. PT AT THE BEDSIDE. PT USES URINAL. WILL CONTINUE TO MONITOR PT. FOLLOW POC.
[2021-06-11] MEDS ORDERED: POTASSIUM99 M1 PO (11:06)
--- NOTE | 2021-06-11 14:00 | NUR ---
Chart review. Noted he is requiring higher amounts of oxygen 7L/nc. No anticipated dc today. Will cont following if needs arise.
[2021-06-11 14:32] VITALS: BP 134/97
[2021-06-11 19:19] VITALS: BP 141/81
--- NOTE | 2021-06-11 22:15 | NUR ---
ASSUMED CARE OF PT AT 1915. PT IS A&OX4. IS ON 7L OF O2/NC. IS STABLE. DENIES PAIN, N/T, N/V. IS UP WITH 1 ASSIST, GB, WALKER. FALL PRECAUTIONS & HOURLY ROUNDING CONTINUED THIS SHIFT. LABS & VITALS REVIEWED. PT IS SCHEDULED FOR IVC FILTER PLACEMENT IN THE AM. CONSENT FORM SIGNED & IS IN THE CHART. PT IS TO BE NPO AT MIDNIGHT, EXCEPT FOR ICE CHIPS. PT & DAUGHTER ARE AWARE. VOIDS PER URNIAL. PT IS CURRENTLY IN BED, WATCHING TV. CALL LIGHT WITHIN REACH. WILL CONTINUE TO MONITOR. LOVENOX ON HOLD.
[2021-06-12 07:47] VITALS: BP 123/87
--- NOTE | 2021-06-12 10:07 | NUR ---
ASSUMED PT CARE THIS AM. PT HAS BEEN NPO SINCE MIDNIGHT. IR CALLED THIS AM AND WAS ASKING ABOUT PT. CONSENT FORM OBTAINED LAST NIGHT AND AT THE CHART. PT IS CURRENTLY AT 7L NC O2. PT AT THE BEDSIDE. AWAITING FOR IR FILTER IVC PLACEMENT TODAY. WILL CONTINUE TO MONITOR PT. FOLLOW POC.
--- NOTE | 2021-06-12 11:41 | NUR ---
Discuss during los with the attending physician. He requiring 9L/nc oxygen. Possible going to IR today for test/procedure. Will cont following as needed.
--- NOTE | 2021-06-12 15:05 | NUR ---
RT RECEIVED ORDER FOR EXERCISE OX FOR PT TODAY, FROM 06/11/21. AT 1025 THIS MORNING, RT CONSULTED WITH PT'S RN ABOUT PT STATUS. RN STATED THAT PT WOULD BE GOING FOR IVC PLACEMENT TODAY, AND IS ON 7LPM NC. RN WAS CONCERNED FOR PT TO GET UP FOR WALK. RT ASKED FOR DR'S PHONE NUMBER TO CONSULT WITH DR. DR AYALA WAS PAGED, AND RT AND RN DID NOT RECEIVE RESPONSE. RT REPORTED TO PT'S ROOM. RT TALKED WITH DR MOORE WHO WAS LEAVING PT'S ROOM AT APPROX 1040. DR MOORE STATED THAT PT WOULD BE GOING IN FOR IVC TODAY AND A BRONCH TOMORROW, AND IT WOULD BE PREMATURE TO DO EXCERSISE OX TODAY. EXCERSISE OX WAS HELD. RT NOTIFIED RN. RN WAS IN AGREEMENT. EXCERSISE OX TO BE CANCELLED AT THIS TIME.
[2021-06-12 15:56] VITALS: BP 129/101
[2021-06-12 19:47] VITALS: BP 111/84
--- NOTE | 2021-06-13 03:12 | NUR ---
PT PLACED ON HIGH FLOW VENTIMASK AT 15 LITERS DUE TO OXYGEN DEMANDS INCREASE. SPUDEM IS BRIGHT BLOOD TINGED. PT C/O INSOMNIA. SLEEP MEDICATION GIVEN DIRECTED. FALL PRECAUTIONS IN PLACE, CALL LIGHT IS WITHIN REACH.
[2021-06-13 08:38] VITALS: BP 123/82
--- NOTE | 2021-06-13 09:55 | NUR ---
Noted he had increase need for 15L oxygen over night. Out of room for bronch today. Will cont follows as needed if needs arise.
[2021-06-13 12:52] LABS: SOURCE LEFT LOWER LUNG BAL; TOTAL VOLUME 22 mL
[2021-06-13 12:53] LABS: CLARITY TURBID; COLOR DARK RED
[2021-06-13 14:11] LABS: BF NUCLEATED CELLS 457 /mm3; BF RBC 23246 /mm3
[2021-06-13 15:59] VITALS: BP 132/89
[2021-06-13 16:07] LABS: BF MACROPHAGE 83 %; BF NEUTROPHILS 10 %
[2021-06-13 16:21] LABS: HEMATOCRIT 40.1 % (42.0-52.0); HEMOGLOBIN 13.4 gm/dL (14.0-18.0); MCH 33.1 pg (26.0-34.0); MCHC 33.5 g/dL (28.0-37.0); MCV 98.9 fL (80.0-100.0); RBC 4.06 mil/uL (4.50-6.00); WBC 10.1 thou/uL (4.0-11.0)
[2021-06-13 16:26] LABS: CREATININE 1.5 mg/dL (0.7-1.3); POTASSIUM 3.4 mmol/L (3.5-5.1)
--- NOTE | 2021-06-13 18:30 | NUR ---
PT ASSESSED AT START OF SHIFT. O2 REQUIREMENTS INCRREASED OVERNOC TO 15L NC AND 50% VENTIMASK. PT WENT FOR BRONCH BY DR. MOORE AND WAS CLEANED OUT AND CAME BACK ON 5LNC ONLY. REQUIREMENTS INCREASED AFTERWARD TO 8LNC PER RT. PT RESPIRATIONS EVEN AND UNLABORED. AT BEDSIDE MOST OF DAY. HGB INCREASED TO 13.4. EATING OK. VOIDING IN BR W/ ASSIST.
[2021-06-13 20:38] VITALS: BP 102/72
--- NOTE | 2021-06-14 04:00 | NUR ---
Rested quietly thro the noc.Denies pain. Continuous pulse OX, satting above 93%. NPO since midnoc for EGD today afternoon. No episodes of bloody sputum or stool. Urinates well via urinal.Calls appropriately.
[2021-06-14 06:34] LABS: % SATURATION 12 % (20-39); IRON 21 ug/dL (65-175); TIBC 177 ug/dL (250-450)
[2021-06-14 07:37] VITALS: BP 132/60
[2021-06-14 08:16] LABS: HEMATOCRIT 37.2 % (42.0-52.0); HEMOGLOBIN 12.3 gm/dL (14.0-18.0); MCH 32.9 pg (26.0-34.0); MCHC 33.1 g/dL (28.0-37.0); MCV 99.5 fL (80.0-100.0); RBC 3.74 mil/uL (4.50-6.00); RDW 16.1 % (10.5-14.5); WBC 8.7 thou/uL (4.0-11.0)
[2021-06-14 08:21] LABS: CALCIUM 9.1 mg/dL (8.5-10.1); CREATININE 1.6 mg/dL (0.7-1.3); POTASSIUM 3.4 mmol/L (3.5-5.1)
--- NOTE | 2021-06-14 10:38 | NUR ---
Assumed care of pt at 0700. Pt a&ox4. Denies pain. Pt is wondering whether he needs IV fluids since he has been NPO all night. Provider notified. New orders noted. On 8L O2. Cont pulse ox in place. SBA. EGD scheduled for this afternoon. Family at bedside. Fall precautions in place. Will continue to monitor.
--- NOTE | 2021-06-14 14:09 | NUR ---
Discussed during los with the attending physician. No anticipated dc over the weekend. EGD and possible angiogram today. 8L/nc oxygen. Anticipate home with family at dc. He has home oxygen already.
[2021-06-14 20:14] VITALS: BP 107/51
--- NOTE | 2021-06-14 22:49 | NUR ---
PT IS ALERT AND ORIENTED. HE IS PLEASANT, CONVERSATIONAL.HEPARIN DRIP STARTED PER PROTOCOL. DARK YELLOW-BLOOD TINGED U/O. SPUTUM WITH NO BLOOD SO FAR. DENIES PAIN.HAD A FEW QUESTIONS ABOUT THE RISK OF BLEEDING WITH ANTI-COAGULATION. VITALS STABLE. REMAINS ON 02/6L/NC,CONTINOUS PULSE OX. CALLS WITH NEEDS.
[2021-06-15 05:55] LABS: HEMATOCRIT 35.3 % (42.0-52.0); HEMOGLOBIN 11.8 gm/dL (14.0-18.0); MCH 32.9 pg (26.0-34.0); MCHC 33.6 g/dL (28.0-37.0); MCV 98.2 fL (80.0-100.0); RBC 3.6 mil/uL (4.50-6.00); RDW 16.3 % (10.5-14.5); WBC 6.4 thou/uL (4.0-11.0)
[2021-06-15 06:09] LABS: CREATININE 1.3 mg/dL (0.7-1.3); POTASSIUM 3.3 mmol/L (3.5-5.1)
[2021-06-15 07:45] VITALS: BP 98/73
--- NOTE | 2021-06-15 11:19 | NUR ---
\ssumed care of pt at 0700. Pt a&ox4. On heparin drip. Will start telemetry. Next Aptt vikki 1200. Family at bedside. Call light within reach. Will continue to monitor.
[2021-06-15 16:15] VITALS: BP 95/61
--- NOTE | 2021-06-15 19:49 | NUR ---
AT 1945 MADE A CALL TO FOLLOW UP WITH THE LAB ORDER IN PLACE SPOKE TO CHIEF OPERATING OFFICER (BEATRIZ) WILL BE APPROACHING THE UNIT SHORTLY TO DRAW BLOOD.
[2021-06-15 20:23] VITALS: BP 99/64
--- NOTE | 2021-06-15 23:39 | NUR ---
PT RESTING IN BED. REQUESTED SLEEP MED AND PROVIDED. HEPARIN DRIP INTACT. PT VERBALIZED UNDERSTANDING OF LAB DRAW AT 0300. PT VERBALIZED FRUSTRATION WITH LENGTH OF TIME TO DISSOLVE BLOOD CLOT AND HIS CONTINUTED CANCER TREATMENTS AT AND [facility] AND BEING ABLE TO KEEP THESE APPOINTMENTS. STATED HIS DAUGHTER, AND NEICES ARE ALL NURSES. PT CALLS FOR ASSIST.
[2021-06-16 02:56] LABS: HEMATOCRIT 31.4 % (42.0-52.0); HEMOGLOBIN 10.7 gm/dL (14.0-18.0); MCH 33.4 pg (26.0-34.0); MCHC 34.1 g/dL (28.0-37.0); MCV 98.2 fL (80.0-100.0); RBC 3.2 mil/uL (4.50-6.00); RDW 15.8 % (10.5-14.5); WBC 6.8 thou/uL (4.0-11.0)
[2021-06-16 02:59] LABS: CALCIUM 8.7 mg/dL (8.5-10.1); CREATININE 1.4 mg/dL (0.7-1.3); POTASSIUM 3.4 mmol/L (3.5-5.1)
--- NOTE | 2021-06-16 03:22 | NUR ---
PT ASKING NURSE TO HAVE DR CONSIDER PORT, PT REPORTS LAB DRAWS ARE BECOMING MORE DIFFICULT. LAB NOTED INCREASE IN BRUISING OF RHAND FROM PREVIOUS LAB DRAWS. PTT ELEVATED. DRIP TURNED OFF ONE HOUR AND RATE DECREASED PER PROTOCOL.
[2021-06-16 07:00] VITALS: BP 113/84
--- NOTE | 2021-06-16 13:33 | NUR ---
ASSUMED PT CARE THIS AM. PT HAS IV SITES ON LFA RUNNING HEPARIN DRIP AND RAC SALINE LOCKED. PT IS ON 5L NC 02. PTT THIS AM WAS 34.1 AND ADJUSTED HEPARIN DRIP PER PROTOCOL. ORDER REDRAW FOR PTT AT 1700. PT USES URINAL AND BEDSIDE COMMODE. PT AT THE BEDSIDE. WILL CONTINUE TO MONITOR PT. FOLLOW POC.
[2021-06-16 19:24] VITALS: BP 121/80
[2021-06-17 00:25] VITALS: BP 119/85
[2021-06-17 01:13] LABS: HEMATOCRIT 31.4 % (42.0-52.0); HEMOGLOBIN 10.5 gm/dL (14.0-18.0); MCH 32.7 pg (26.0-34.0); MCHC 33.3 g/dL (28.0-37.0); RBC 3.21 mil/uL (4.50-6.00); RDW 16.2 % (10.5-14.5); WBC 8.8 thou/uL (4.0-11.0)
[2021-06-17 01:34] LABS: CALCIUM 8.9 mg/dL (8.5-10.1); CREATININE 1.3 mg/dL (0.7-1.3); POTASSIUM 3.4 mmol/L (3.5-5.1)
--- NOTE | 2021-06-17 04:10 | NUR ---
UPON SHIFT REPORT, PT AT BEDSIDE, NO REPORT OF NEEDS OR OBSERVATION OF CONCERN AT THAT TIME. UPON SHIFT ASSESSMENT, PT AOX4. PT DENIES PAIN AND SOB WHILE ON 5L O2 VIA NC. PT TOLERATING PO INTAKE OF FLUIDS AND REGULAR DIET WITHOUT ISSUE. PT WITHOUT NAUSEA OR EMESIS. PT VOIDING PER URINAL AT BEDSIDE, RESTING IN BED OTHERWISE. FREQUENT REPOSITIONING ENCOURAGED WHILE IN BED, PT NOTED TO SHIFT INDEPENDENTLY. SENSATION INTACT, CAPILLARY REFILL LESS THAN 3SEC, RADIAL PULSES PALPABLE, PEDAL PULSES FAINT TO PALPATION. HEPARIN DRIP CONTINUES, LAB DRAWN AT 0106, BOLUS GIVEN AT 0241, DRIP ADJUSTED PER HEPARIN FLOW SHEET AT 0244, NEXT LAB DRAW ORDERED AT 0845. PT ENCOURAGED TO NOTIFY STAFF FOR ALL NEEDS, CALL LIGHT WITHIN REACH, BED ALARM ON, BED LOCKED IN LOWEST POSITION, FREQUENT MONITORING WILL CONTINUE.
[2021-06-17 04:37] VITALS: BP 120/84
[2021-06-17] MEDS ORDERED: DILTIAZEM 24HR240 M1 PO (07:08)
[2021-06-17 07:24] VITALS: BP 120/74
--- NOTE | 2021-06-17 09:00 | NUR ---
Going for procedure today. No dc today. Possible ready for dc home tomorrow with family.
--- NOTE | 2021-06-17 09:49 | NUR ---
Followup: remains hospitalized and with lung cancer and metastasis. Tolerates diet fair >65% most meals and drinks Premier protein drinks brought in by since does not like ensure products. No new wt. Continue same nutrition plan of care. Low nutrition risk with appropriate nutrition interventions in place
[2021-06-17 16:09] VITALS: BP 117/83
--- NOTE | 2021-06-17 18:30 | NUR ---
PT ASSESSED AT START OF SHIFT. NPO ALL SHIFT UNTIL DINNER. HEPARIN GTT DC'D PER DR. STEWART. PT WENT FOR CT ANGIOGRAM AROUND 1730. AT DINNER WHEN RETURNED. PT QUITE WEAK WHEN OUT OF BED. DRS. MEJIA AND DIA CAME TO SEE AND TALK W/ PT AND . PLAN FOR DISCHARGE HOME TOMORROW.
[2021-06-17 20:27] VITALS: BP 123/74
[2021-06-18] MEDS ORDERED: CARDIZEM CD120 MG PO ×2 (09:00→10:41)
--- NOTE | 2021-06-18 09:00 | NUR ---
cm visited with pt , anticipated dc home today. o2 4L/nc, No dme needs or hh needs. Cm passed along prayer for grover and his family. Thank you very much per grover and his .
[2021-06-18] MEDS ORDERED: LEVOFLOXACIN500 MG PO ×2 (09:15→10:41)
[2021-06-18] MEDS ORDERED: PREDNISONE 20 M20 M1 PO ×2 (09:15→10:41)
[2021-06-18 09:48] VITALS: BP 122/87
--- NOTE | 2021-06-18 09:55 | NUR ---
ASSUMED PT CARE THIS AM. REMOVED IVS. GIVEN ENOXAPARIN 80MG PER DR ORDERED THIS AM. REMOVED TELE. PT AT THE BEDSIDE. EDUCATED AND INFORMED PT ABOUT DC INSTRUCTIONS. PT SIGNED DC FORMS. PT IS ON 4L NC O2 THIS AM. PT WILL BE DC TODAY.
[2021-06-18] MEDS ORDERED: ENOXAPARIN80 MG/0.8 SUBQ (10:41)
[2021-06-18] MEDS ORDERED: ENOXAPARIN60 MG/0.6 SUBQ (11:48)
--- NOTE | 2021-06-20 15:07 | PATH ---
[facility] [address] [place] [address] PATHOLOGY RPT PROCEDURE Name: SUZE NOBLE Room #: 444-P [facility] IN [facility].#: [id number] Admission: 06/08/21 Date of : 44 Discharge: 06/18/21 Report #: [id number] Path Case #: [id number] Note LCA Accession Number: [id number] TESTS RESULT FLAG UNITS REF RANGE LAB Clinician Provided Cytology Information No. of containers..01 Other (Miscellaneous) Source: LLL BRUSHING DIAGNOSIS: 02 LLL BRUSHING NEGATIVE FOR MALIGNANT CELLS. NORMAL BRONCHIAL CELLS AND MACROPHAGES ARE PRESENT. PULMONARY MACROPHAGES (DUST CELLS) ARE PRESENT. Signed out by: 02 Toya Toledo MD, Pathologist NPI- [id number] Performed by: 01 Radha Donohue Clinical Medical Assistant ([facility]) FLAG LEGEND: L-Low Normal,H-High Normal,LL-Alert Low,HH-Alert High <-Panic Low,>-Panic High,A-Abnormal,AA-Critical Abnormal Performed at: [address] [place] [address] Jarret May MD, [address] [address] Toya Toledo MD, Specimen Comment: A courtesy copy of this report has been sent to [phone], [phone] Specimen Comment: [phone] Specimen Comment: Report sent to DR. AYALA / DR BAL Specimen Comment: A duplicate report has been generated due to demographic updates. Performed at: [address], [place], [place] [id number] MD Jarret May MD Phone: [phone]
--- NOTE | 2021-06-20 15:07 | PATH ---
[facility] [address] [place] [address] PATHOLOGY RPT PROCEDURE Name: SUZE NOBLE Room #: 444-P [facility] IN [facility].#: [id number] Admission: 06/08/21 Date of : 44 Discharge: 06/18/21 Report #: [id number] Path Case #: [id number] Note LCA Accession Number: [id number] TESTS RESULT FLAG UNITS REF RANGE LAB Clinician Provided Cytology Information No. of containers..01 Other (Miscellaneous) Source: LLL BRUSHING DIAGNOSIS: LLL BRUSHING NEGATIVE FOR MALIGNANT CELLS. NORMAL REACTIVE BRONCHIAL CELLS AND MACROPHAGES ARE PRESENT. PULMONARY MACROPHAGES (DUST CELLS) ARE PRESENT. Signed out by: 02 Toya Toledo MD, Pathologist NPI- [id number] Performed by: Radha Donohue, Patient Ombudsperson ([facility]) Gross description: 01 20ML, COLORLESS, CLEAR /LCS 06/19/2021 0242 Local FLAG LEGEND: L-Low Normal,H-High Normal,LL-Alert Low,HH-Alert High <-Panic Low,>-Panic High,A-Abnormal,AA-Critical Abnormal Performed at: [address] [place] [address] Jarret May MD, [address] [address] Toya Toledo MD, Specimen Comment: A courtesy copy of this report has been sent to [phone] Specimen Comment: [phone] Specimen Comment: [id number] Specimen Comment: Report sent to DR. AYALA / DR BAL Specimen Comment: A duplicate report has been generated due to demographic updates. Performed at: [address], [place], [place] [id number] MD Jarret May MD Phone: [phone]
--- NOTE | 2021-06-20 15:07 | PATH ---
[facility] [address] [place] [address] PATHOLOGY RPT PROCEDURE Name: SUZE NOBLE Room #: 444-P [facility] IN [facility].#: [id number] Admission: 06/08/21 Date of : 44 Discharge: 06/18/21 Report #: [id number] Path Case #: [id number] Note LCA Accession Number: [id number] TESTS RESULT FLAG UNITS REF RANGE LAB Clinician Provided Cytology Information No. of containers..01 Other (Miscellaneous) Source: BAL LLL DIAGNOSIS: BAL LLL INADEQUATE, INSUFFICIENT CELLS FOR STUDY. INADEQUATE, NO CELLS FROM PULMONARY SOURCE FOUND IN THIS SPECIMEN. SCANT CELLULARITY. Signed out by: Toya Toledo MD, Pathologist NPI- [id number] Performed by: Radha Donohue, Cut In Worker ([facility]) Gross description: 01 20ML, DARK RED, TURBID /LCS 06/19/2021 0238 Local FLAG LEGEND: L-Low Normal,H-High Normal,LL-Alert Low,HH-Alert High <-Panic Low,>-Panic High,A-Abnormal,AA-Critical Abnormal Performed at: [address] [place] [address] Jarret May MD, [address] [address] Toya Toledo MD, Specimen Comment: A courtesy copy of this report has been sent to [phone], [phone] Specimen Comment: [phone] Specimen Comment: Report sent to DR. AYALA / DR BAL Specimen Comment: A duplicate report has been generated due to demographic updates. Performed at: [address], [place], [place] [id number] MD Jarret May MD Phone: [phone]
== END 2021-06-18 12:09 | disposition home or self-care (01) | DRG 180 ==
LOC: ER 10:07 → EROBS 15:10 → 4S 15:10
PROVIDERS: Anesthesiology; Emergency Medicine; Internal Medicine; Pediatrics; ADMIT Hospitalist; ATTEND Hospitalist
PROC: 5A0935A Assistance with Respiratory Ventilation, Less than 24 Consecutive Hours, High Flow/Velocity Cannula (ICD-10-PCS; principal; 2021-06-08)
PROC: 5A0945A Assistance with Respiratory Ventilation, 24-96 Consecutive Hours, High Flow/Velocity Cannula (ICD-10-PCS; 2021-06-10)
PROC: 5A0935A Assistance with Respiratory Ventilation, Less than 24 Consecutive Hours, High Flow/Velocity Cannula (ICD-10-PCS; 2021-06-12)
PROC: 06H03DZ Insertion of Intraluminal Device into Inferior Vena Cava, Percutaneous Approach (ICD-10-PCS; 2021-06-12)
PROC: 0B9J8ZX Drainage of Left Lower Lung Lobe, Via Natural or Artificial Opening Endoscopic, Diagnostic (ICD-10-PCS; 2021-06-13)
PROC: 5A0935A Assistance with Respiratory Ventilation, Less than 24 Consecutive Hours, High Flow/Velocity Cannula (ICD-10-PCS; 2021-06-13)
PROC: 0BDJ8ZX Extraction of Left Lower Lung Lobe, Via Natural or Artificial Opening Endoscopic, Diagnostic (ICD-10-PCS; 2021-06-13)
PROC: 0DJ08ZZ Inspection of Upper Intestinal Tract, Via Natural or Artificial Opening Endoscopic (ICD-10-PCS; 2021-06-14)
PROC: 5A0935A Assistance with Respiratory Ventilation, Less than 24 Consecutive Hours, High Flow/Velocity Cannula (ICD-10-PCS; 2021-06-14)
PROC: 5A0935A Assistance with Respiratory Ventilation, Less than 24 Consecutive Hours, High Flow/Velocity Cannula (ICD-10-PCS; 2021-06-17)
DX: C34.90 Malignant neoplasm of unspecified part of unspecified bronchus or lung (principal); J96.21 Acute and chronic respiratory failure with hypoxia; I26.99 Other pulmonary embolism without acute cor pulmonale; K57.11 Diverticulosis of small intestine without perforation or abscess with bleeding; C79.31 Secondary malignant neoplasm of brain; R04.2 Hemoptysis; D68.59 Other primary thrombophilia; C78.7 Secondary malignant neoplasm of liver and intrahepatic bile duct; I74.3 Embolism and thrombosis of arteries of the lower extremities; J40 Bronchitis, not specified as acute or chronic; D64.9 Anemia, unspecified; I10 Essential (primary) hypertension; E78.5 Hyperlipidemia, unspecified; M10.9 Gout, unspecified; K44.9 Diaphragmatic hernia without obstruction or gangrene; I48.0 Paroxysmal atrial fibrillation; Z20.822 Contact with and (suspected) exposure to COVID-19; J44.9 Chronic obstructive pulmonary disease, unspecified; Z85.51 Personal history of malignant neoplasm of bladder; Z90.2 Acquired absence of lung [part of]; Z92.3 Personal history of irradiation; Z92.21 Personal history of antineoplastic chemotherapy; Z86.79 Personal history of other diseases of the circulatory system; Z86.19 Personal history of other infectious and parasitic diseases; Z87.442 Personal history of urinary calculi; Z88.6 Allergy status to analgesic agent; Z88.0 Allergy status to penicillin; Z87.891 Personal history of nicotine dependence; Z79.01 Long term (current) use of anticoagulants
CPT/HCPCS: 10100; 10195; 62110; 62900; 70005

== ENCOUNTER 2021-07-04 02:43 | Inpatient (IN) | payer OTHER, BC ==
[~2021-07-04] VITALS: Ht 182.9 cm; Wt 72.6 kg
[~2021-07-04 02:43] MED LIST changes: +CARDIZEM CD120 MG PO; +CENTRUM SILVER1 EAC7 PO; +DESYREL150 MG PO; +DILTIAZEM 24HR240 M1 PO; +ENOXAPARIN60 MG/0.6 SUBQ; +LEVO-T50 MCG PO; +LEVOFLOXACIN500 MG PO; +ONDANSETRON ODT8 MG PO; +POTASSIUM99 M1 PO; +PREDNISONE 20 M20 M1 PO; +PROTONIX40 M2 PO; +TUMS200 MG PO
[2021-07-04 02:44] VITALS: BP 96/59
[2021-07-04 03:22] LABS: ABSOLUTE NEUTROPHILS 3.2 thou/uL (1.4-8.2); BASOPHILS 0.7 % (0.0-2.0); EOSINOPHILS 2.1 % (0.0-3.0); HEMATOCRIT 29.2 % (42.0-52.0); HEMOGLOBIN 9.8 gm/dL (14.0-18.0); LYMPHOCYTES 9.8 % (24.0-44.0); MCH 33.4 pg (26.0-34.0); MCHC 33.6 g/dL (28.0-37.0); MCV 99.3 fL (80.0-100.0); MONOCYTES 1.6 % (1.0-8.0); PLATELET COUNT 158 thou/uL (150-400); POLYS 85.8 % (36.0-66.0); RBC 2.94 mil/uL (4.50-6.00); RDW 16.9 % (10.5-14.5); WBC 3.7 thou/uL (4.0-11.0)
[2021-07-04 03:30] LABS: CALCIUM 8.6 mg/dL (8.5-10.1); CREATININE 1.5 mg/dL (0.7-1.3); POTASSIUM 3.6 mmol/L (3.5-5.1)
[2021-07-04 03:44] LABS: ALBUMIN 2.6 g/dL (3.4-5.0); TOTAL PROTEIN 6.3 g/dL (6.4-8.2)
[2021-07-04 06:01] LABS: URINE BILIRUBIN NEGATIVE (Negative); URINE BLOOD TRACE (Negative); URINE CLARITY CLEAR; URINE COLOR YELLOW; URINE GLUCOSE-RANDOM* NEGATIVE (Negative); URINE KETONES NEGATIVE (Negative); URINE LEUKOCYTES-REFLEX TRACE (Negative); URINE NITRITE-REFLEX NEGATIVE (Negative); URINE PROTEIN (DIPSTICK) TRACE (Negative); URINE SPECIFIC GRAVITY <= 1.005 (1.005-1.035)
[2021-07-04 06:33] LABS: SQUAMOUS 0-3 Few /LPF (0-3); TRANSITIONAL EPITHEL CELL 0-3 Few /LPF (None Seen)
[2021-07-04 06:34] LABS: BACTERIA-REFLEX 1-9 Few /HPF (None Seen); URINE RBC 3-10 Few /HPF (NONE SEEN)
--- NOTE | 2021-07-04 07:52 | EKG ---
[address] [address] ELECTROCARDIOGRAM REPORT Name: SUZE NOBLE Room #: 170-11 ADM IN M.R.#: [id number] Admission: 07/04/21 Attend Phys: Jessica Murillo Discharge: Date of : 44 Report #: [id number] [facility] ED Test Date: 2021-07-04 Test Time: 02:53:14 Pat Name: SUZE NOBLE Department: Room: 170 Gender: M Wood Gluer: CARSON : 1940 Requested By: Jaelyn Montilla Order Number: [id number] MD: Arpan Montes Measurements Intervals Deland Rate: 97 P: 77 SC: 156 QRS: 80 QRSD: 87 T: 77 QT: 363 QTc: 461 Interpretive Statements Sinus rhythm Compared to ECG 06/08/2021 12:51:40 No significant changes Electronically Signed On 07-04-2021 7:52:04 AWNING MAKER by Arpan Montes [email or web address] <ELECTRONICALLY SIGNED> By: Arpan Montes MD, [facility] 07/04/21 0752 0253 0253 Arpan Montes MD, FACC /EPI
[2021-07-04 09:41] VITALS: BP 96/57
--- NOTE | 2021-07-04 14:29 | NUR ---
80 year old male presents to the ED on 07-04-20 via wheelchair with spouse with hypoxia and low grade temp. Hx of Lung CA with irasema and last chemo ws 3 days prior to presentation. Of note per ED Triage assessment patient noted as vaccinated and per ED ID NOW listed as negative and both Influenza A&B negative. The patient has been admitted with UTI, Cute on chronic hypoxemic respiratory failure, Reported hemoptysis, Hypotension, Acute on chronic renal failure with Hx of A-fib. Home with spouse when discharged on 06-18-21 without need of home health or DME. Noted in the record that patient remains A&O x4 with spouse present. CM will follow for discharge needs once therapy evaluations are completed in conjunction with MD assessment (s).
[2021-07-04 20:00] VITALS: BP 99/61
[2021-07-05 02:41] LABS: HEMATOCRIT 24.2 % (42.0-52.0)
[2021-07-05 02:44] LABS: HEMOGLOBIN 8.1 gm/dL (14.0-18.0); MCH 33.4 pg (26.0-34.0); MCHC 33.4 g/dL (28.0-37.0); MCV 99.9 fL (80.0-100.0); PLATELET COUNT 116 thou/uL (150-400); RBC 2.43 mil/uL (4.50-6.00)
[2021-07-05 02:57] LABS: CALCIUM 8.3 mg/dL (8.5-10.1); CREATININE 1.3 mg/dL (0.7-1.3); MAGNESIUM 1.7 mg/dL (1.8-2.4)
[2021-07-05 03:04] LABS: WBC 1.6 thou/uL (4.0-11.0)
[2021-07-05 03:59] VITALS: BP 103/66
[2021-07-05 06:09] LABS: ABSOLUTE NEUTROPHILS 1.3 thou/uL (1.4-8.2); ATYPICAL LYMPHS 1 %
--- NOTE | 2021-07-05 07:37 | HC ---
[facility] [place] [address] CONSULTATION Name: SUZE NOBLE Room #: 170- ADM IN .R.#: [id number] Admission: 07/04/21 Attend Phys: Jessica Murillo Discharge: Date of : 44 Report #: [id number] THIS REPORT FOR: cc: Eric Nick MD, Jeremy C. MD McKittrick, Richard James MD ~ cc: Jessica Murillo MD, Eric Nick MD, Brenda Wallace MD, Stanley Terry MD DATE OF SERVICE: 07/04/2021 HISTORY OF PRESENT ILLNESS: The patient is a 80-year-old male who was most recently in the hospital in May for history of hemoptysis and pneumonia and also brain mets and arterial thrombi. He had been home for several days and over the weekend. This is on now, he began having some increasing shortness of breath. He had a low-grade fever who was begun on Levaquin yesterday. Evidently, he became notice he needed 8 liters of oxygen instead of 4 and a fever to 100.3 or so yesterday. He is now seen in the Emergency Room and on observation room. He is answering questions clearly. His is present. He says he does not have any headache. He has not had any more bleeding or coughing up any blood ____ he has flecks of blood several times a day. It does not feel he is coughing any harder. He does not have a sore throat, no dysphagia. His appetite is not so good just because he is not hungry and food does not taste quite right. His bowels are moving okay. He is passing urine okay, but has a little bit hesitancy. No new arm or leg swelling, though yesterday they had noted some left arm, a little bit of swelling, but that is back down today. No one at home has been sick. 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 Note, there has also been some concern this last admission that had pulmonary clots that may have contributed to his arterial clots. He also has a history of COPD, atypical mycobacterial infection in the past, history of hypertension, history of gout, history of an elevated PSA. Also, history of AFib, history of possible bladder cancer and he has now completed the radiation therapy to his brain met and finished a steroid taper. Also has anemia, history of kidney stones and also blebs were removed from both lungs SOCIAL HISTORY: History of smoking until 11/2020 at home have been on 4 liters of oxygen. MEDICATIONS: At this time in the hospital currently include sodium chloride. Other meds will likely be ordered including his Lovenox. PHYSICAL EXAMINATION: GENERAL: The patient appears his stated age. [address] [address] CONSULTATION Name: SUZE NOBLE Room #: 170-13 ADM IN M.R.#: [id number] Admission: 07/04/21 Attend Phys: Jessica Murillo Discharge: Date of : 44 Report #: [id number] VITAL SIGNS: His height is 6 feet 182.8 cm, weight 160 pounds or 72.6 kilograms. Blood pressure is recently 94/54, 100% sat, pulse rate 87. Temperature is 97.8. NEUROLOGIC: He is alert and oriented x3. Speech is normal. Moving extremities to his fatigue. HEENT: Oropharynx is clear. LUNGS: Do have some soft rhonchi and decreased lung sounds, but no obvious wheezes at this time. No significant rhonchi after clearing cough. HEART: Appears regular rate. ABDOMEN: No masses, nontender. NECK: No enlarged lymph nodes in the supraclavicular, cervical, axillary region. EXTREMITIES: Without clubbing, cyanosis or edema. ASSESSMENT AND PLAN: 1. Extensive stage small cell lung cancer, recent chemotherapy for lurbinectedin about a week ago. Note, the patient is not neutropenic at this time. 2. 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 3. Respiratory failure with increased oxygen needs and fairly normal CTA chest with stable disease. No blood clots, blood or mucus plugging. Defer to Pulmonary and others. Continue oxygen as needed. Continue antibiotics, which will likely be started. He was given Levaquin yesterday as outpatient. 4. Question of UTI. Await culture results. 5. Hypertension. Meds per others. 6. History of arterial clot and pulmonary clot, would suggest continuing Lovenox at previous doses. 7. Weakness. PT, OT as needed. 8. Hypothyroid. We will check TSH, may need dose adjustment. 9. History of bladder cancer, not an issue. 10. History of kidney stones. Not currently an issue. 11. History of hemoptysis, low volume at this time. I think the benefit of treating clot outweighs small volume flecks of blood. Would continue same. 12. Hyperlipidemia, per others. <ELECTRONICALLY SIGNED> By: Luis Arshad MD 07/05/21 0737 0801 1031 Luis Arshad MD /nt
--- NOTE | 2021-07-05 13:25 | NUR ---
Dc planning visit with pt/ Jeimy Munson at bedside today. They are awaiting therapy evaluations and interested in 5N acute rehab stay if he qualifies. If therapy feels he is strong enough to go home then he wants a home exer program provided vs having HH services to minimize the people coming into their home. 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 Awaiting PT imput. [facility] consult requested. working on renting a w/c and having a ramp put in at the home. Pt suffers from met lung ca and is in precautions for low white count d/t recent chemo. He has home o2, hospital bed, bsc, and rwalker per [facility]. They also note that they have had an info visit from [facility] for future reference. Support provided. Possible dc home this weekend or 5N pending their eval.
[2021-07-05 15:43] VITALS: BP 103/66
[2021-07-05 16:45] VITALS: BP 103/66
[2021-07-05 17:00] VITALS: BP 104/72
[2021-07-05 20:00] VITALS: BP 110/72
[2021-07-05 22:30] VITALS: BP 110/76
--- NOTE | 2021-07-06 07:17 | NUR ---
PATIENT AOX4 MAKES NEEDS KNOWN. PATIENT IS A NEW ADMISION FOR HX. LUNG CA WITH METS. PATIENT NEEDS MINIMUM ASSISTANCE WITH ADL, BED MOBILITY,RANSFER AND TOILETING. PATIENT IS CALM AND COOPERATIVE WITH MEDS AND CARE. PATIENT DENIED PAIN OR DISCOMFORT.PATIENT ON 4L NO SOA OR DISTESS NOTED. PATIENT HAS NO IV ACCESS, DR. GIVENS. FALL PRECAUTION IN PLACE. PATIENT IN BED ASLEEP AT THIS TIME BREATHING REGULAR AND UNLABOURED.
[2021-07-06 08:55] LABS: ABSOLUTE NEUTROPHILS 2.2 thou/uL (1.4-8.2); BASOPHILS 0.1 % (0.0-2.0); EOSINOPHILS 0.1 % (0.0-3.0); LYMPHOCYTES 18.2 % (24.0-44.0); MCH 33.5 pg (26.0-34.0); MCHC 33.2 g/dL (28.0-37.0); MCV 100.8 fL (80.0-100.0); MONOCYTES 4.1 % (1.0-8.0); PLATELET COUNT 166 thou/uL (150-400); POLYS 77.5 % (36.0-66.0); RBC 2.68 mil/uL (4.50-6.00); RDW 17.5 % (10.5-14.5); WBC 2.8 thou/uL (4.0-11.0)
[2021-07-06 09:10] LABS: ALBUMIN 2.5 g/dL (3.4-5.0); CALCIUM 8.5 mg/dL (8.5-10.1); CREATININE 1.4 mg/dL (0.7-1.3); MAGNESIUM 1.7 mg/dL (1.8-2.4); POTASSIUM 3.4 mmol/L (3.5-5.1); TOTAL BILIRUBIN 0.4 mg/dL (0.2-1.0); TOTAL PROTEIN 5.8 g/dL (6.4-8.2)
[2021-07-06 16:24] VITALS: BP 122/69
--- NOTE | 2021-07-06 17:33 | NUR ---
Patient up as own, at bedside, no pain, mag and k+ replaced. call light within reach, limb alert to left arm due to blood clot. will continous monitoring.
[2021-07-06 19:47] VITALS: BP 103/66
--- NOTE | 2021-07-07 04:33 | NUR ---
ASSUMED PT CARE AT 1900.PT'S AT BEDSIDE VISITING AT SHIFT CHANGE.PT DENIED PAIN SO FAR.URINAL AT BEDSIDE.P REFUSED BLOOD SUGAR CHECK AT HS,STATED THAT HIS FINGERS WERE SO SORE.PT STILL ON 4L/NC.PT ABLE TO MAKE HIS NEEDS KNOWN.PT PROGRESSING SLOWLY TOWARDS DC GOALS.CALL LIGHT WITHIN REACH.
[2021-07-07 07:30] VITALS: BP 111/73
[2021-07-07 08:06] VITALS: BP 115/73
[2021-07-07] MEDS ORDERED: RAYOS5 MG PO (11:39)
[2021-07-07] MEDS ORDERED: LEVOFLOXACIN500 MG PO (11:40)
[2021-07-07] MEDS ORDERED: NYSTATIN100000 UNI SW&SWALLOW (11:42)
== END 2021-07-07 13:00 | disposition home or self-care (01) | DRG 180 ==
LOC: ER 02:43 → EROBS 06:42 → 4S 07-05 23:39
PROVIDERS: Emergency Medicine; Internal Medicine; Nurse Practitioner; ADMIT Hospitalist; ATTEND Hospitalist
PROC: 5A0935A Assistance with Respiratory Ventilation, Less than 24 Consecutive Hours, High Flow/Velocity Cannula (ICD-10-PCS; principal; 2021-07-04)
PROC: 5A0935A Assistance with Respiratory Ventilation, Less than 24 Consecutive Hours, High Flow/Velocity Cannula (ICD-10-PCS; 2021-07-06)
DX: C34.90 Malignant neoplasm of unspecified part of unspecified bronchus or lung (principal); J96.21 Acute and chronic respiratory failure with hypoxia; E43 Unspecified severe protein-calorie malnutrition; N39.0 Urinary tract infection, site not specified; R04.2 Hemoptysis; N17.9 Acute kidney failure, unspecified; C78.7 Secondary malignant neoplasm of liver and intrahepatic bile duct; C79.31 Secondary malignant neoplasm of brain; D61.818 Other pancytopenia; I31.3 Pericardial effusion (noninflammatory); E78.5 Hyperlipidemia, unspecified; I48.91 Unspecified atrial fibrillation; E86.0 Dehydration; E03.9 Hypothyroidism, unspecified; I95.9 Hypotension, unspecified; M10.9 Gout, unspecified; R63.0 Anorexia; M21.371 Foot drop, right foot; L13.9 Bullous disorder, unspecified; R26.89 Other abnormalities of gait and mobility; G62.0 Drug-induced polyneuropathy; T45.1X5A Adverse effect of antineoplastic and immunosuppressive drugs, initial encounter; M19.90 Unspecified osteoarthritis, unspecified site; E11.42 Type 2 diabetes mellitus with diabetic polyneuropathy; G35 Multiple sclerosis; J43.9 Emphysema, unspecified; Z20.822 Contact with and (suspected) exposure to COVID-19; N18.30 Chronic kidney disease, stage 3 unspecified; E83.42 Hypomagnesemia; E87.6 Hypokalemia; E11.22 Type 2 diabetes mellitus with diabetic chronic kidney disease; S80.11XA Contusion of right lower leg, initial encounter; I12.9 Hypertensive chronic kidney disease with stage 1 through stage 4 chronic kidney disease, or unspecified chronic kidney disease; X58.XXXA Exposure to other specified factors, initial encounter; Y93.89 Activity, other specified; Y99.8 Other external cause status; Z79.01 Long term (current) use of anticoagulants; Z87.442 Personal history of urinary calculi; Y92.89 Other specified places as the place of occurrence of the external cause; Z92.21 Personal history of antineoplastic chemotherapy; Z85.51 Personal history of malignant neoplasm of bladder; Z85.118 Personal history of other malignant neoplasm of bronchus and lung; Z86.11 Personal history of tuberculosis; Z88.6 Allergy status to analgesic agent; Z88.0 Allergy status to penicillin; Z87.891 Personal history of nicotine dependence; I25.2 Old myocardial infarction; Z68.21 Body mass index [BMI] 21.0-21.9, adult
CPT/HCPCS: 10102

== ENCOUNTER → 2021-07-25 | Outpatient (CLI) | payer OTHER, BC ==
[~2021-07-25] MED LIST changes: -LIPITOR20 MG PO; +LIPITOR40 MG PO; +NYSTATIN100000 UNI SW&SWALLOW; +PREDNISONE 10 M10 M1 PO; +RAYOS5 MG PO; +ZEPZELCA4 MG IV
[2021-07-25 10:40] VITALS: BP 106/82
[2021-07-25 11:55] LABS: ABSOLUTE NEUTROPHILS 3.8 thou/uL (1.4-8.2); BASOPHILS 0.2 % (0.0-2.0); EOSINOPHILS 0.1 % (0.0-3.0); HEMATOCRIT 26.5 % (42.0-52.0); HEMOGLOBIN 9.1 gm/dL (14.0-18.0); LYMPHOCYTES 3.9 % (24.0-44.0); MCH 33.7 pg (26.0-34.0); MCHC 34.2 g/dL (28.0-37.0); MCV 98.4 fL (80.0-100.0); MONOCYTES 1.1 % (1.0-8.0); PLATELET COUNT 165 thou/uL (150-400); POLYS 94.7 % (36.0-66.0); RBC 2.69 mil/uL (4.50-6.00); RDW 17.2 % (10.5-14.5); WBC 4.1 thou/uL (4.0-11.0)
[2021-07-25 13:45] VITALS: BP 106/82
--- NOTE | 2021-07-25 14:14 | NUR ---
DISCUSSED PICC PLACEMENT WITH THE NURSE AND PATIENT. CONFIRMED WITH MD THAT PICC WAS THE LINE ORDERED FOR PLACEMENT. DISCUSSED THE RISK OF BLOOD CLOTS WITH THE PATIENT AND WELL STAFF. A TICC PLACEMENT WAS SUGGESTED. PICC WAS STILL ORDERED FOR PLACEMENT. THE AND THE PATIENT UNDERSTAND INCREASED RISK OF PLACEMENT. THE LEFT ARM HAS A CURRENT DVT. THE RIGHT UPPER ARM BASILIC IS WIDLEY PATENT WITH A CTHETER TO VEIN RATIO OF 20%. THE LINE WAS TRIMMED TO 42CM AND ADVANCED TO 3CM EXTERNAL. THE LINE WAS CONFIRMED USING 3CG AT 3CM EXTERNAL AND RELEASED FOR USE
--- NOTE | 2021-07-25 15:00 | NUR ---
HERE FOR PICC LINE PLACEMENT. PT IS RECEIVING CHEMO FOR SCLC AT [facility] WITH DR. SANTIAGO. HAD A RECENT DVT LEFT ARM AND IS ON LOVENOX, DOSE HELD THIS MORNING PER DR. SANTIAGO'S REQUEST. (FORMER RN) SAYS SHE AND DR. SANTIAGO HAD A DISCUSSION ABOUT THE MOST APPROPRIATE LINE IN HIS SITUATION--BOTH A CLOTTING HX ISSUE AND WANTING THE LEAST INVASIVE APPROACH HIS HEALTH IS DECLINING. THEY ARE BOTH AWARE OF THE CLOT RISK AND HAVE CHOSEN THE PICC LINE ROUTE AND PLAN TO CONTINUE THE BID LOVENOX. I SPOKE WITH DR. SANTIAGO PRIOR TO PT ARRIVAL TO VERIFY THE ORDER. UPON ARRIVAL, PT AND ASKED IF HE COULD HAVE SOME IV FLUIDS WHILE HERE D/T WEAKNESS AND DECLINE IN STATUS A BIT POST CHEMO ONE WEEK AGO. DENIES N/V/DIARRHEA, FEVER/CHILLS OR ANY SIGN OF INFECTION. NO APPETITE. TRYING TO TAKE IN PROTEIN SHAKES BUT IS LOSING WEIGHT. CALLED THE OFFICE AND GOT ORDERS FOR LABS AND FLUIDS. SPOKE WITH PT AND ABOUT PLANS FOR SUPPORTIVE CARE AT HOME IN LIGHT OF HIS DECLINE AND THE NEWLY PLACED PICC. STATES THEY HAD A HOME VISIT WITH [facility]HOSPICE NURSE A FEW MONTHS AGO BUT WERE NOT YET READY TO START SERVICES. TALKED A BIT ABOUT THE ADVANTAGE OF SUPPORTIVE CARE AND BOTH AGREE THAT THIS WOULD BE A NICE TIME TO START. OFFICE NURSE, PRAMOD, NOTIFIED AND CAN PLACE THAT REFERRAL FOR SERVIES. SPOKE WITH THEM ON THE PHONE TODAY AND WAS TOLD THEY COULD START SERVICES ONCE THEY RECEIVE THAT REFERRAL. MEANWHILE, INSTRUCTED ON PICC LINE CARE AND FLUSHING AND PERFOMED A FLUSH ON PT'S PICC PRIOR TO HIS DISMISSAL. TOLD THAT SHE WAS NOT EXPECTED TO CHANGE THE DRESSING AND IF IT BECAME LOOSE, WET OR SOILED THAT SHE WAS TO CALL THE OFFICE FOR A DRESSING CHANGE IF [facility] NOT YET STARTED. PICC DRESSING CHANGED PRIOR TO DISMISSAL THE ORIGINAL DRESSING AND OPSITE HAD BECOME SATURATED WITH BLOOD. NO BLEEDING NOTED POST DRESSING CHANGE, SLIGHT PRESSURE APPLIED TO THE SITE AND ASKED PT/ TO LEAVE THIS ON UNTIL HE GOT HOME BUT NOT TO KEEP IT ON OVERNITE. FLUSH SUPPLIES SENT HOME TO LAST A FEW DAYS. PT DISMISSED POST FLUIDS IN STABLE CONDITION. HE AND AWARE TO CALL DR. MONSALVE'S OFFICE WITH ANY CONCERNS.
== END ==
LOC: OPONC 09:28
PROVIDERS: ATTEND Internal Medicine Hematology & Oncology
DX: C34.90 Malignant neoplasm of unspecified part of unspecified bronchus or lung (principal); I74.9 Embolism and thrombosis of unspecified artery; I82.90 Acute embolism and thrombosis of unspecified vein; Z45.2 Encounter for adjustment and management of vascular access device
CPT/HCPCS: 27000